=== PATIENT | male | born 1935 | race Caucasian/White ===

== ENCOUNTER 2021-09-21 17:08 | Inpatient (IN) | payer MEDICARE, MEDICAID, SELFPAY ==
[2021-09-21 17:09] VITALS: BP 176/81; PULSE 61; RESP 18; O2SAT 98; BMI 33.9
--- NOTE | 2021-09-21 17:10 | CT_ITS ---
PROCEDURE INFORMATION: Exam: CT Head Without Contrast Exam date and time: 09/21/2021 5:10 PM Age: 85 years old Clinical indication: Altered mental status/memory loss; Additional info: Stroke alert TECHNIQUE: Imaging protocol: Computed tomography of the head without contrast. Radiation optimization: All CT scans at this facility use at least one of these dose optimization techniques: automated exposure control; mA and/or kV adjustment per patient size (includes targeted exams where dose is matched to clinical indication); or iterative reconstruction. Other technique: STROKE PROTOCOL was implemented. COMPARISON: No relevant prior studies available. FINDINGS: Brain: No intracranial bleed, suspicious mass, or mass effect. Ventricles appear unremarkable. There is low attenuation change in the white matter most consistent with chronic age related small vessel ischemic change. No acute territorial infarction is seen. These can be initially occult on head CT. ASPECTS score 10. Cerebral ventricles: See Brain finding. Paranasal sinuses: Visualized sinuses are unremarkable. No fluid levels. Mastoid air cells: Visualized mastoid air cells are well aerated. Bones/joints: Unremarkable. No acute fracture. Soft tissues: Unremarkable. IMPRESSION: 1. No intracranial bleed, suspicious mass, or mass effect. Ventricles appear unremarkable. 2. There is low attenuation change in the white matter most consistent with chronic age related small vessel ischemic change. No acute territorial infarction is seen. These can be initially occult on head CT. 3. ASPECTS score 10.
--- NOTE | 2021-09-21 17:11 | ECG_ITS ---
APPROVED REPORT Exam: Resting ECG HR:60 bpm ECG Measurements Heart Rate 60 AXES HI 182 P 37 QRSd 84 QRS -4 QT 438 T 67 QTc 438 Conclusion Normal sinus rhythm Normal ECG Electronically signed by : Chris Gonzalez MD 09/22/2021 08:31:29
--- NOTE | 2021-09-21 17:11 | PC.NURSE ---
Notified rad of stroke alert Stroke alert called overhead
--- NOTE | 2021-09-21 17:13 | PC.NURSE ---
PT to CT with Chema,RN
--- NOTE | 2021-09-21 17:14 | XR_ITS ---
PROCEDURE INFORMATION: Exam: XR Chest Exam date and time: 09/21/2021 5:14 PM Age: 85 years old Clinical indication: Cough; Additional info: Cough// also here for stroke alert TECHNIQUE: Imaging protocol: XR of the chest. Views: 1 view. COMPARISON: No relevant prior studies available. FINDINGS: Lungs: No lobar consolidation, effusion or edema. Mild bronchial wall thickening. This may represent underlying inflammation or infection, or be chronic. Pleural spaces: Unremarkable. No pleural effusion. No pneumothorax. Heart/Mediastinum: Unremarkable. No cardiomegaly. Bones/joints: Unremarkable. IMPRESSION: 1. No lobar consolidation, effusion or edema. 2. Mild bronchial wall thickening. This may represent underlying inflammation or infection, or be chronic.
--- NOTE | 2021-09-21 17:19 | PC.NURSE ---
PT returned from CT
--- NOTE | 2021-09-21 17:27 | PC.NURSE ---
reviewing CT report
[2021-09-21 17:28] LABS: Basophils # 0.2 K/mm3 (0-0.2); Basophils % 2.7 % (0.1-2.0); Chloride 108 mmol/L (98-107); Eosinophils # 0.4 K/mm3 (0.0-0.4); Eosinophils % 5.9 % (0.1-12.0); Hematocrit 44.2 % (42.0-52.0); Hemoglobin 14.8 g/dL (14.1-18.0); Lymphocytes # 2.4 K/mm3 (0.7-4.5); Lymphocytes % 37.2 % (10-50); Mean Corpuscular HGB Conc 33.4 g/dL (31.8-35.4); Mean Corpuscular Hemoglobin 33.2 pg (27.0-31.2); Mean Corpuscular Volume 99.5 fl (80-94); Mean Platelet Volume 9.1 fl (7.4-10.4); Monocytes # 0.5 K/mm3 (0.1-1.0); Monocytes % 8.5 % (1.7-9.3); Neutrophils # 2.9 K/mm3 (1.8-7.8); Neutrophils % 45.6 % (37.0-80.0); Platelet Count 178 K/mm3 (142-424); Potassium 4.7 mmoL/L (3.5-5.1); Red Blood Count 4.44 M/mm3 (4.60-6.20); Red Cell Distribution Width 14.6 % (11.5-17.5); Sodium 143 mmol/L (136-145); White Blood Count 6.4 K/mm3 (4.8-10.8)
[2021-09-21 17:31] LABS: Alanine Aminotransferase 23 U/L (12-78); Albumin Level 4.2 g/dl (3.5-5.0); Albumin/Globulin Ratio 1.4 (1.1-1.8); Alkaline Phosphatase 96 U/L (38-126); Anion Gap 14.7 mEq/L (5-15); Aspartate Amino Transferase 38 U/L (17-59); Bilirubin,Total 2.2 mg/dl (0.2-1.3); Blood Urea Nitrogen 36 mg/dl (9-20); Carbon Dioxide 25 mmol/L (22.0-30.0); Creatinine Clearance Estimated 29 mL/min (50-200); Estimated Glomerular Filt Rate 20 ml/min (>60); GFR (African American) 24 ML/MIN (>60); Globulin 3.1 g/dL (1.3-3.2); Total Protein,Serum 7.3 g/dl (6.3-8.2)
[2021-09-21 17:32] LABS: Calcium 9.5 mg/dl (8.4-10.2); Glucose 102 mg/dl (74-100); Lipase 418 U/L (23-300)
--- NOTE | 2021-09-21 17:38 | HMH.EDAMS ---
ED Disposition Clinical Impression: TIA (transient ischemic attack) Altered mental status Qualifiers: Altered mental status type: disorientation Qualified Code(s): R41.0 - Disorientation, unspecified Chronic kidney disease Qualifiers: Chronic kidney disease stage: unspecified stage Qualified Code(s): N18.9 - Chronic kidney disease, unspecified Disposition: Admitted As Inpatient Condition on Discharge: Fair Instructions: DI for Altered Mental Status Referrals: Daniel Kuo [Primary Care Provider] - - Critical Care Critical Care Time: No Attestation: On 09/21/21, the high probability of a clinically significant, sudden or life threatening deterioration of the following system(s) required my full and direct attention, intervention and personal management. The time I documented below is in addition to time spent performing reported procedures but includes the following listed in this critical care notation. Medical Decision Making - Medical Records Medical records reviewed: Yes: I reviewed the patient's medical records. - James Inquiry Pt receiving controlled substance: No Vital Signs: 09/21/21 17:09 09/21/21 18:00 09/21/21 18:34 Pulse Rate 60 60 Pulse Rate [Left Radial] 61 Respiratory Rate 18 16 15 Blood Pressure 170/80 H 151/64 H Blood Pressure [Right Arm] 176/81 H Blood Pressure Mean 75 Blood Pressure Mean [Right Arm] 112 Blood Pressure Source Automatic Cuff Blood Pressure Source [Right Arm] Automatic Cuff Blood Pressure Position Sitting Blood Pressure Position [Right Arm] Sitting 02 Sat by Pulse Oximetry 98 98 98 Oxygen Delivery Method Room Air Room Air - Lab Data Lab Results 09/21/21 17:15: WBC 6.4, RBC 4.44 L, Hgb 14.8, Hct 44.2, MCV 99.5 H, MCH 33.2 H, MCHC 33.4, RDW 14.6, Plt Count 178, MPV 9.1, Neut % (Auto) 45.6, Lymph % (Auto) 37.2, [place] % (Auto) 8.5, Eos % (Auto) 5.9, Baso % (Auto) 2.7 H, Neut # (Auto) 2.9, Lymph # (Auto) 2.4, [place] # (Auto) 0.5, Eos # (Auto) 0.4, Baso # (Auto) 0.2 09/21/21 17:15: Sodium 143, Potassium 4.7, Chloride 108 H, Carbon Dioxide 25, Anion Gap 14.7, BUN 36 H, Creatinine 3.00 H, Estimated Creat Clear 29, Estimated GFR 20 L, Est GFR ( Amer) 24 L, Glucose 102 H, Calcium 9.5, Total Bilirubin 2.2 H, AST 38, ALT 23, Alkaline Phosphatase 96, Troponin I < 0.01, Total Protein 7.3, Albumin 4.2, Globulin 3.1, Albumin/Globulin Ratio 1.4, TSH 2.94 09/21/21 17:15: NT-Pro-B Natriuret Pep 163, Lipase 418 H 09/21/21 17:15: Plasma/Serum Alcohol < 10 09/21/21 17:50: Urine Color Yellow, Urine Appearance Clear, Urine pH 6.0, Ur Specific [place] 1.020, Urine Protein Negative, Urine Glucose (UA) Negative, Urine Ketones Negative, Urine Blood Negative, Urine Nitrate Negative, Urine Bilirubin Negative, Urine Urobilinogen 1.0, Ur Leukocyte Esterase Negative, Urine RBC None, Urine WBC Occasional, Ur Squamous Epith Cells Occasional, Urine Bacteria None 09/21/21 17:50: Urine Opiates Screen Negative, Urine Methadone Screen Negative, Ur Barbituates Screen Negative, Ur Phencyclidine Scrn Negative, Ur Amphetamines Screen Negative, U Benzodiazepines Scrn Negative, Urine Cocaine Screen Negative, U Marijuana (THC) Screen Negative Result diagrams: 09/21/21 17:15 09/21/21 17:15 Orders (Tests/Meds): ORDERS Category Date Time Status Rapid PCR Covid and Flu A/B Stat Lab 09/21/21 17:14 Ordered Troponin I Q3H Lab 09/21/21 20:15 Ordered Troponin I Q3H Lab 09/21/21 23:15 Ordered - Radiology Data #1 Image(s): Chest Image Reviewed: Yes I reviewed the patient's radiology results, Yes I reviewed the patient's radiology image, Yes I have reviewed radiologist's interpretation IMPRESSION: 1. No lobar consolidation, effusion or edema. 2. Mild bronchial wall thickening. This may represent underlying inflammation or infection, or be chronic. - CT Data CT Scan: Head Time Received: 19:[address] Reviewed: Yes: I have reviewed the patient's CT results, I have viewed t
[2021-09-21 17:41] LABS: NT Pro Brain Natriuretic Pep. 163 pg/mL (0-450)
[2021-09-21 17:53] LABS: Ethyl Alcohol < 10 mg/dl (0-10); Troponin I < 0.01 ng/ml (0.00-0.034)
[2021-09-21 18:00] VITALS: BP 170/80; PULSE 60; RESP 16; O2SAT 98
[2021-09-21 18:02] LABS: Thyroid Stimulating Hormone 2.94 uIU/mL (0.465-4.68)
[2021-09-21 18:04] LABS: Microscopic, Urine URINE MICROSCOPIC (MICROSCOPIC)
[2021-09-21 18:17] LABS: Appearance,Urine CLEAR (Clear); Bilirubin,Urine Negative (Negative); Blood, Urine Negative (Negative); Color,Urine YELLOW (Yellow); Glucose,Urine (UA) Negative (Negative); Ketones,Urine Negative (Negative); Leukocyte Esterase,Urine Negative (Negative); Nitrate,Urine Negative (Negative); Protein,Urine Negative (Negative)
[2021-09-21 18:31] LABS: Amphetamine/Metha Screen,Urine Negative ng/ml (<1000)
[2021-09-21 18:32] LABS: Barbiturates Screen,Urine Negative ng/ml (<200); Benzodiazepines Screen,Urine Negative ng/ml (<200)
[2021-09-21 18:33] LABS: Cannabinoid Screen,Urine Negative ng/ml (<50); Cocaine Screen,Urine Negative ng/ml (<300)
[2021-09-21 18:34] VITALS: BP 151/64; PULSE 59; PULSE 60; RESP 15; RESP 16; O2SAT 98
[2021-09-21 18:34] LABS: Methadone Screen,Urine Negative ng/ml (<300); Squamous Epithelial Cell,Urine Occasional #/hpf (0-5); WBC,Urine Occasional #/hpf (0-3)
[2021-09-21 18:35] LABS: Opiate Screen,Urine Negative ng/ml (<300); Phencyclidine Screen,Urine Negative ng/ml (<25)
--- NOTE | 2021-09-21 18:44 | PC.NURSE ---
Called Mary and requested records
--- NOTE | 2021-09-21 18:55 | PC.NURSE ---
Dr. Hodges has been paged.
--- NOTE | 2021-09-21 19:08 | PC.NURSE ---
Decision to admit by ER doc. Hodges to [facility].
[2021-09-21 19:20] LABS: Coronavirus 19, PCR Not Detected (NotDetected); Influenza A, PCR Not Detected (NotDetected); Influenza B, PCR Not Detected (NotDetected)
[2021-09-21 20:00] VITALS: PULSE 80; O2SAT 97
[2021-09-21 20:16] VITALS: BP 161/81; PULSE 68; RESP 16; TEMP 36.8; O2SAT 98
[2021-09-21 20:18] VITALS: BP 156/68; PULSE 70; RESP 20; TEMP 36.8; O2SAT 97; BMI 33.2
--- NOTE | 2021-09-21 20:20 | PC.NURSE ---
patient arrived via stretcher @ 20:18.
[2021-09-21 20:27] LABS: Troponin I < 0.01 ng/ml (0.00-0.034)
[2021-09-21 23:49] LABS: Troponin I < 0.01 ng/ml (0.00-0.034)
[2021-09-22] VITALS (9 sets, daily range): BP systolic 102–196; BP diastolic 62–72; PULSE 67–82; RESP 16–24; TEMP 36.5–37.1; O2SAT 96–99; BMI 33.2
--- NOTE | 2021-09-22 06:16 | PC.NURSE ---
pt is alert and oriented to self. unable to follow commands appropriately. he has been very restless throughout this shift. he has been in and out of the bed to the recliner multiple times. this nurse and another nurse ambulated pt to the bathroom. tolerating room air. resting in bed at this time. bed alarm on and functioning. call light within reach.
[2021-09-22 07:42] LABS: Alanine Aminotransferase 27 U/L (12-78); Albumin/Globulin Ratio 1.3 (1.1-1.8); Alkaline Phosphatase 87 U/L (38-126); Anion Gap 13.3 mEq/L (5-15); Aspartate Amino Transferase 46 U/L (17-59); Bilirubin,Total 2.3 mg/dl (0.2-1.3); Blood Urea Nitrogen 43 mg/dl (9-20); Calcium 10.2 mg/dl (8.4-10.2); Carbon Dioxide 21 mmol/L (22.0-30.0); Chloride 112 mmol/L (98-107); Creatinine Clearance Estimated 22 mL/min (50-200); Estimated Glomerular Filt Rate 15 ml/min (>60); GFR (African American) 18 ML/MIN (>60); Globulin 3.1 g/dL (1.3-3.2); Glucose 107 mg/dl (74-100); Potassium 4.3 mmoL/L (3.5-5.1); Sodium 142 mmol/L (136-145); Total Protein,Serum 7.1 g/dl (6.3-8.2)
[2021-09-22 08:06] LABS: Basophils # 0.1 K/mm3 (0-0.2); Basophils % 0.9 % (0.1-2.0); Eosinophils # 0.3 K/mm3 (0.0-0.4); Eosinophils % 4.4 % (0.1-12.0); Hematocrit 42.5 % (42.0-52.0); Hemoglobin 14.4 g/dL (14.1-18.0); Lymphocytes # 1.9 K/mm3 (0.7-4.5); Mean Corpuscular Hemoglobin 33.1 pg (27.0-31.2); Mean Corpuscular Volume 97.4 fl (80-94); Mean Platelet Volume 9.2 fl (7.4-10.4); Monocytes # 0.6 K/mm3 (0.1-1.0); Monocytes % 9.1 % (1.7-9.3); Neutrophils # 3.6 K/mm3 (1.8-7.8); Neutrophils % 55.5 % (37.0-80.0); Platelet Count 168 K/mm3 (142-424); Red Blood Count 4.36 M/mm3 (4.60-6.20); Red Cell Distribution Width 14.8 % (11.5-17.5); White Blood Count 6.5 K/mm3 (4.8-10.8)
--- NOTE | 2021-09-22 08:38 | HMH.PHAVTE ---
[facility] Pharmacy VTE Monitoring - Patient Demographics Allergies/Adverse Reactions: Patient Allergies No Known Allergies Allergy (Verified 09/21/21 17:10) Height: 1.83 m Weight: 111.2 kg Patient Problems: Current Active Problems Altered mental status (Acute) TIA (transient ischemic attack) (Acute) Chronic kidney disease (Acute) - VTE Risk Labs: VTE Related Lab Results Hgb 14.4 g/dL (14.1-18.0) 09/22/21 06:44 Hct 42.5 % (42.0-52.0) 09/22/21 06:44 Plt Count 168 K/mm3 (142-424) 09/22/21 06:44 BUN 43 mg/dl (9-20) H 09/22/21 06:44 Creatinine 3.90 mg/dl (0.66-1.25) H D 09/22/21 06:44 Estimated Creat Clear 22 mL/min (50-200) 09/22/21 06:44 Was VTE Risk Assessment Performed: Yes VTE Risk Level: Moderate Risk Clinical Trial Participant: No - Prophylaxis VTE Prophylaxis Ordered?: Yes Types of VTE Prophylaxis: TEDS Knee High, Pharmacological Location of Applied Device: Bilateral Lower Extremeties Pharmacologic Type: Enoxaparin
--- NOTE | 2021-09-22 09:20 | HMH.PHAINT ---
MEDICATION RECONCILIATION COMPLETE USING EXTERNAL PHARMACY FILL HISTORY.
--- NOTE | 2021-09-22 11:26 | HMH.HP ---
*Admission Date: 09/21/21 *Chief complaint: confusion *History of present illness: Mr. Olivas is an 85-year-old white male with a history of hypertension, hyperlipidemia, BPH, and arthritis who who presented to the emergency room initially as a stroke alert. He was brought in by his son around 5 PM stating that at noon he noticed he was more confused and was having difficulty ambulating and following commands and was slurring some of his words. No family is present at the time of my exam this morning but according to the ER record, he has been having slowly progressive symptoms over several weeks. In fact he was hospitalized at [facility] in July with similar symptoms which resolved within 24 hours and he was diagnosed with TIA. He had another episode about 2 years ago and had a more complete work-up including MRI and MRA of the brain which showed nothing acute. This information is obtained from records required from [facility]. Evaluation in our emergency room yesterday was remarkable for an elevated creatinine of 3.0 with no known history of chronic kidney disease although on record review from [facility] his creatinine in July was 1.9. He apparently was on diuretics at that time and these were discontinued. Noncontrast CT scan of the head in the ER showed age-related small vessel ischemic changes. During the course of his evaluation in the emergency room, his neurologic symptoms did seem to improve. The ER physician documented that his speech seemed to be more clear and he was moving all extremities. He was subsequently admitted for further neurologic observation and also evaluation of his acute renal insufficiency. Nursing staff notes that he was restless throughout the night and was confused. He did not sleep well. His creatinine is increased to 3.9 this morning. His daughter has arrived to the hospital and provides additional information. She however lives in [place] and sees her father only every few weeks. She does speak with him frequently on the phone and states that she had a long conversation 4 days ago and his mental status was normal at that time. She also reports that he was mowing his grass and driving his car last week. She is aware of the previous episodes he has had and states that this one is similar but has lasted longer than the other episodes. He lives alone and manages his own medication although his son lives nearby and checks on him frequently. 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 No history of neurologic disease or dementia) Review of Systems - Review of Systems Review of systems:: unable to obtain - *Neurologic Reports confusion, Reports lack of coordination Meds Home Medications Medication Instructions Recorded Confirmed Type Aspirin [Aspirin EC 325mg Tab] 325 mg PO DAILY 09/21/21 09/21/21 History Atorvastatin Calcium [Lipitor 40mg 40 mg PO DAILY 09/21/21 09/21/21 History Tab] Cetirizine HCl [All Day Allergy 10 mg PO DAILY 09/21/21 09/21/21 History Relief] Finasteride [Proscar 5mg Tablet] 5 mg PO DAILY 09/21/21 09/21/21 History Losartan Potassium 50 mg PO DAILY 09/21/21 09/21/21 History Triamterene/Hydrochlorothiazid 1 each PO DAILY 09/21/21 09/21/21 History [Triamterene-Hctz 75-50 mg Ta
[2021-09-23] VITALS (7 sets, daily range): BP systolic 121–150; BP diastolic 41–68; PULSE 60–90; RESP 16–18; TEMP 36.7–38.7; O2SAT 94–98; BMI 33.2
--- NOTE | 2021-09-23 04:23 | PC.NURSE ---
Pt is alert and oriented to self can state name and . Pt has been very restless throughout this shift. Pt has been in and out of the bed multiple times. Can ambulate to bathroom x2 assist. Bed alarm on and functioning.
[2021-09-23 07:03] LABS: Basophils % 0.3 % (0.1-2.0); Eosinophils % 0.1 % (0.1-12.0); Hematocrit 39.3 % (42.0-52.0); Hemoglobin 14.2 g/dL (14.1-18.0); Lymphocytes # 0.8 K/mm3 (0.7-4.5); Lymphocytes % 5.8 % (10-50); Mean Corpuscular HGB Conc 36.1 g/dL (31.8-35.4); Mean Corpuscular Hemoglobin 34.3 pg (27.0-31.2); Mean Corpuscular Volume 94.8 fl (80-94); Mean Platelet Volume 9.6 fl (7.4-10.4); Monocytes # 0.7 K/mm3 (0.1-1.0); Monocytes % 5.2 % (1.7-9.3); Neutrophils # 12.5 K/mm3 (1.8-7.8); Neutrophils % 88.5 % (37.0-80.0); Platelet Count 147 K/mm3 (142-424); Red Blood Count 4.14 M/mm3 (4.60-6.20); Red Cell Distribution Width 14.4 % (11.5-17.5); White Blood Count 14.1 K/mm3 (4.8-10.8)
[2021-09-23 07:04] LABS: MANUAL DIFFERENTIAL MANUAL DIFFERENTIAL (MANUAL DIFF)
[2021-09-23 07:34] LABS: Alanine Aminotransferase 27 U/L (12-78); Albumin Level 3.6 g/dl (3.5-5.0); Albumin/Globulin Ratio 1.2 (1.1-1.8); Alkaline Phosphatase 83 U/L (38-126); Anion Gap 15.5 mEq/L (5-15); Aspartate Amino Transferase 55 U/L (17-59); Blood Urea Nitrogen 50 mg/dl (9-20); Calcium 9.7 mg/dl (8.4-10.2); Carbon Dioxide 20 mmol/L (22.0-30.0); Chloride 113 mmol/L (98-107); Creatinine Clearance Estimated 19 mL/min (50-200); Estimated Glomerular Filt Rate 13 ml/min (>60); GFR (African American) 15 ML/MIN (>60); Globulin 3.1 g/dL (1.3-3.2); Glucose 118 mg/dl (74-100); Lipase 385 U/L (23-300); Potassium 4.5 mmoL/L (3.5-5.1); Sodium 144 mmol/L (136-145); Total Protein,Serum 6.7 g/dl (6.3-8.2)
--- NOTE | 2021-09-23 08:05 | XR_ITS ---
PROCEDURE: XR CHEST PORTABLE CLINICAL HISTORY: fever, AMS COMPARISON: CR XR CHEST PORTABLE from 09/21/2021 FINDINGS: The cardiomediastinal silhouette and pulmonary vascularity are within normal limits. The lungs are clear without infiltrates, suspicious nodules, or pleural effusions. No acute bony abnormalities. IMPRESSION: No acute findings. Dictated by: Oneil King MD 09/23/2021 10:11 Oneil King MD in OV 09/23/2021 10:11
--- NOTE | 2021-09-23 08:31 | US_ITS ---
PROCEDURE: US KIDNEY CLINICAL INDICATION: acute renal failure COMPARISON: No exams were available for comparison FINDINGS: The right kidney is [id number]. No hydronephrosis, cortical thinning, or renal mass or perinephric fluid collection is evident. The left kidney is [id number]. No hydronephrosis, cortical thinning, or renal mass or perinephric fluid collection is evident. IMPRESSION: Unremarkable bilateral renal ultrasound Dictated by: Oneil King MD 09/23/2021 13:56 Oneil King MD in [place] 09/23/2021 13:56
--- NOTE | 2021-09-23 08:36 | HMH.PHACONS ---
- Pharmacy Consult Date: 09/23/21 Time: 08:36 Referring provider: DR. BARKLEY Reason for Consult:: VANCOMYCIN DOSING Allergies and ADEs:: Allergies Allergy/AdvReac Type Severity Reaction Status Date / Time No Known Allergies Allergy Verified 09/21/21 17:10 Home Medications:: Home Medications Medication Instructions Recorded Confirmed Type Aspirin [Aspirin EC 325mg Tab] 325 mg PO DAILY 09/21/21 09/21/21 History Atorvastatin Calcium [Lipitor 40mg 40 mg PO DAILY 09/21/21 09/21/21 History Tab] Cetirizine HCl [All Day Allergy 10 mg PO DAILY 09/21/21 09/21/21 History Relief] Finasteride [Proscar 5mg Tablet] 5 mg PO DAILY 09/21/21 09/21/21 History Losartan Potassium 50 mg PO DAILY 09/21/21 09/21/21 History Triamterene/Hydrochlorothiazid 1 each PO DAILY 09/21/21 09/21/21 History [Triamterene-Hctz 75-50 mg Tab] carvediloL [Carvedilol 6.25mg Tab] 6.25 mg PO DAILY 09/21/21 09/21/21 History Height: 1.83 m Weight: 111.2 kg Laboratory Results:: Laboratory Results - last 24 hr 09/23/21 05:44: WBC 14.1 H D, RBC 4.14 L, Hgb 14.2, Hct 39.3 L, MCV 94.8 H, MCH 34.3 H, MCHC 36.1 H, RDW 14.4, Plt Count 147, MPV 9.6, Neut % (Auto) 88.5 H, Lymph % (Auto) 5.8 L, [place] % (Auto) 5.2, Eos % (Auto) 0.1, Baso % (Auto) 0.3, Neut # (Auto) 12.5 H, Lymph # (Auto) 0.8, [place] # (Auto) 0.7, Eos # (Auto) 0.0, Baso # (Auto) 0.0 09/23/21 05:44: Sodium 144, Potassium 4.5, Chloride 113 H, Carbon Dioxide 20 L, Anion Gap 15.5 H, BUN 50 H, Creatinine 4.50 H, Estimated Creat Clear 19, Estimated GFR 13 L*, Est GFR ( Amer) 15 L*, Glucose 118 H, Calcium 9.7, Magnesium 2.0, Total Bilirubin 3.0 H, AST 55, ALT 27, Alkaline Phosphatase 83, Total Protein 6.7, Albumin 3.6, Globulin 3.1, Albumin/Globulin Ratio 1.2, Lipase 385 H Medical History: Reports:: Hyperlipidemia, Hypertension Denies:: Atherosclerotic Heart Disease, Cerebrovascular Accident, Diabetes Mellitus Type 1, Diabetes Mellitus Type 2 Assessment and Plan (1) Altered mental status Status: Acute Qualifiers: Altered mental status type: disorientation Qualified Code(s): R41.0 - Disorientation, unspecified Category: Medical Code(s): R41.82 - Altered mental status, unspecified (2) Multifocal myoclonus Status: Acute Category: Medical Code(s): G25.3 - Myoclonus (3) Acute kidney injury superimposed on chronic kidney disease Status: Acute Category: Medical Code(s): N17.9 - Acute kidney failure, unspecified; N18.9 - Chronic kidney disease, unspecified (4) Hypertension Status: Acute Category: Medical Code(s): I10 - Essential (primary) hypertension (5) Hyperlipidemia Status: Acute Category: Medical Code(s): E78.5 - Hyperlipidemia, unspecified (6) Elevated lipase Status: Acute Category: Medical Code(s): R74.8 - Abnormal levels of other serum enzymes (7) Osteoarthritis Status: Acute Category: Medical Code(s): M19.90 - Unspecified osteoarthritis, unspecified site - Assessment and plan all Dx Assessment and Plan for all problems:: Pharmacokinetic dosing service Objective: Patient: Floor: Age: 85 yo Serum creatinine: 4.50 mg/dL Height: 72.0 Inches Weight (kg): 111.2 Assessment: IBW (kg): 77.60 Dosing wt(kg): 111.2 Estimated Creatinine clearance (ml/min): 13.4 CRCL method: Cockcroft and Gault using ibw(default). Drug selected: Vancomycin Loading dose (mg): Vd (liters): 83.4 (factor used: 0.75 L/kg) Leeroy (hr-1): 0.016 Half life (hrs): 43.32 CLvanco=?? 1.334 L/hr Recommended dose: 1500 mg Interval: 48 hrs Infusion time (hrs): 2.0 Predicted peak (mcg/mL): 33.0 Predicted trough (mcg/mL): 15.81 Total body weight is being used for vancomycin dosing. Recommendations: Give Vancomycin 1500 mg q 48 hrs with an expected Cpeak of
[2021-09-23 08:56] LABS: Lymphocytes % 9 % (10-50); Monocytes % 3 % (2-9); Neutrophils % 88 % (42-76); Platelet Estimate Normal; Total Cells Counted 100
--- NOTE | 2021-09-23 11:31 | HMH.OTEV ---
OT Inpatient Evaluation Rehab OT IP Evaluation Start: 09/23/21 09:01 Freq: ONCE Status: Complete Protocol: Document 09/23/21 11:12 DAVID (Rec: 09/23/21 11:30 DAVID [id number]) Rehab OT IP Assessment Subjective History *Admission Date: 09/21/21 *Chief complaint: confusion Mr. Olivas is an 85-year-old white male with a history of hypertension, hyperlipidemia, BPH, and arthritis who who presented to the emergency room initially as a stroke alert. He was brought in by his son around 5 PM stating that at noon he noticed he was more confused and was having difficulty ambulating and following commands and was slurring some of his words. No family is present at the time of my exam this morning but according to the ER record , he has been having slowly progressive symptoms over several weeks. In fact he was hospitalized at [facility] in July with similar symptoms which resolved within 24 hours and he was diagnosed with TIA. He had another episode about 2 years ago and had a more complete work-up including MRI and MRA of the brain which showed nothing acute. This information is obtained from records required from [facility]. Evaluation in our emergency room yesterday was remarkable for an elevated creatinine of 3.0 with no known history of chronic kidney disease although on record review from [facility] his creatinine in July was 1.9. He apparently was on diuretics at that time and these were discontinued.
--- NOTE | 2021-09-23 11:36 | HMH.PTEV ---
Physical Therapy Evaluation Rehab PT IP Evaluation Start: 09/23/21 09:00 Freq: ONCE Status: Active Protocol: Document 09/23/21 11:18 [email or web address] (Rec: 09/23/21 11:36 [id number]) Subjective/History History History This is the initial evaluation for [facility]. Pt is an 85 y/o male admitted to [facility] for stroke alert. Admission notes reported son admitted pt with complaints of weakness, confusion, trouble ambulating, following commands and slurred speech. Pt's daughter was in room upom arrival and aided in history of current condition. - note done by Sonia Malcolm, SPT Subjective Subjective Pt reported to live at home in a house with son. Pt stated he is able to get around with cane only which he doesn't always use. Pt reported hx of trips that resulted in some falls. Pt reports that he was independent in all ADL's at home and continent. 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 Pt's daughter states he is significantly better today then yesturday. Rehab PT IP Eval Objective Appearance Patient Behavior Appropriate,Cooperative Patient Orientation Place,Name,Birthday Difficulty following instructions mild Speech Pattern Appropriate,Coherent,Monotone, Mumbled,Poor Articulation Ambulation Patient Able to Ambulate Yes Ambulation Observation IP General Gait Pattern Observation No Deviations/Normal Ambulation Distance (feet) 30 Ambulation Assistive Device Rolling Walker Ambulation Ability Supervision/Stand by Balance Ability to Arise Able, w/o using arms Sitting Balance Steady, safe Standing Balance Narrow stance w/o support Dynamic Sitting Balance Ability Normal Dynamic Standing Balance Ability Good Transfers Bed Transfer Ability Independent Chair Transfer Ability Supervision/Stand by Sit to Stand Bed Transfer Ability Supervision/Stand by Sit to Stand Chair Transfer Ability Supervision/Stand by
--- NOTE | 2021-09-23 12:15 | MR_ITS ---
PROCEDURE: MR HEAD/BRAIN WO CON CLINICAL INDICATION: CONFUSION COMPARISON: CT CT HEAD/BRAIN WO CON from 09/21/2021 TECHNIQUE: Routine multiplanar multi echo sequences are performed without gadolinium enhancement. FINDINGS: No acute infarction. No areas of restricted diffusion. No midline shift, mass effect, intracranial hemorrhage, or hydrocephalus. The cerebellopontine angles, cerebellum, and brainstem have an unremarkable appearance. Mild periventricular and scattered subcortical T2 white matter hyperintensities are present consistent with microangiopathic changes. The pituitary, optic chiasm, corpus callosum, and craniocervical junction have an unremarkable appearance. No mastoid effusion or sinus air-fluid level. IMPRESSION: No acute intracranial findings. Dictated by: Oneil King MD 09/23/2021 13:55 Oneil King MD in [place] 09/23/2021 13:55
--- NOTE | 2021-09-23 12:33 | HMH.ACPN2 ---
<Cami Holguin - Last Filed: 09/23/21 12:33> Internal Medicine - PN: Subj *Date: 09/23/21 *Time: 12:33 Interval history: Pt is sitting up in bed eating lunch. He has no complaint at this time. He has been up to the bathroom with assistance. His daughter is at the bedside and reports mental status and speech have returned to normal, although she feels he is weaker than baseline during ambulation and slightly more tremulous. Exam Vital signs and Labs for Last 24 Hours: Temp Pulse Resp BP Pulse Ox 98.0 F 69 18 121/51 L 97 09/23/21 11:02 09/23/21 11:02 09/23/21 11:02 09/23/21 11:02 09/23/21 11:02 Laboratory Results - last 24 hr 09/23/21 05:44: WBC 14.1 H D, RBC 4.14 L, Hgb 14.2, Hct 39.3 L, MCV 94.8 H, MCH 34.3 H, MCHC 36.1 H, RDW 14.4, Plt Count 147, MPV 9.6, Neut % (Auto) 88.5 H, Lymph % (Auto) 5.8 L, Johnson % (Auto) 5.2, Eos % (Auto) 0.1, Baso % (Auto) 0.3, Neut # (Auto) 12.5 H, Lymph # (Auto) 0.8, Johnson # (Auto) 0.7, Eos # (Auto) 0.0, Baso # (Auto) 0.0, Total Counted 100, Neutrophils % (Manual) 88 H, Lymphocytes % (Manual) 9 L, Monocytes % (Manual) 3, Platelet Estimate Normal 09/23/21 05:44: Sodium 144, Potassium 4.5, Chloride 113 H, Carbon Dioxide 20 L, Anion Gap 15.5 H, BUN 50 H, Creatinine 4.50 H, Estimated Creat Clear 19, Estimated GFR 13 L*, Est GFR ( Amer) 15 L*, Glucose 118 H, Calcium 9.7, Magnesium 2.0, Total Bilirubin 3.0 H, AST 55, ALT 27, Alkaline Phosphatase 83, Total Protein 6.7, Albumin 3.6, Globulin 3.1, Albumin/Globulin Ratio 1.2, Lipase 385 H I & O for Last 24 hours: Intake & Output 11/13/21 11/14/21 11/15/21 11/16/21 11:59 11:59 11:59 11:59 Intake Total 120 / 120 660 / 660 Output Total 225 / 225 Balance -105 / -105 660 / 660 Weight 245 lb 2.464 oz 245 lb 2.464 oz - Constitutional no acute distress - *Routine HEENT Exam Head: Present: normocephalic ENT: Present: mucous membranes moist - *Routine Respiratory Exam Absent: respiratory distress Comments: good air movement with rhonchi throughout - *Routine Cardiovascular Exam Present: RRR - *Routine Abdominal Exam Present: soft, normoactive bowel sounds, obese. Absent: tenderness, distended - *Routine Extremities Exam Present: full ROM, pulses intact. Absent: edema, tenderness, extremity cold to touch - *Routine Neurological Exam Present: alert, oriented X3, moving all extremities Assessment and Plan (1) Altered mental status Status: Acute Qualifiers: Altered mental status type: disorientation Qualified Code(s): R41.0 - Disorientation, unspecified Category: Medical Code(s): R41.82 - Altered mental status, unspecified (2) Multifocal myoclonus Status: Acute Category: Medical Code(s): G25.3 - Myoclonus (3) Acute kidney injury superimposed on chronic kidney disease Status: Acute Category: Medical Code(s): N17.9 - Acute kidney failure, unspecified; N18.9 - Chronic kidney disease, unspecified (4) Hypertension Status: Acute Category: Medical Code(s): I10 - Essential (primary) hypertension (5) Hyperlipidemia Status: Acute Category: Medical Code(s): E78.5 - Hyperlipidemia, unspecified (6) Elevated lipase Status: Acute Category: Medical Code(s): R74.8 - Abnormal levels of other serum enzymes (7) Osteoarthritis Status: Acute Category: Medical Code(s): M19.90 - Unspecified osteoarthritis, unspecified site - Assessment and plan all Dx Assessment and Plan for all problems:: Per Dr. Hodges. <Alejandro Hodges - Last Filed: 09/23/21 17:26> Internal Medicine - PN: Subj *Date: 09/23/21 *Time: 17:23 Exam Vital signs and Labs for Last 24 Hours: Temp Pulse Resp BP Pulse Ox 99.0 F 72 16 122/59 L 97 09/23/21 15:10 09/23/21 15:10 09/23/21 15:10 09/23/21 15:10 09/23/21 15:10 Laboratory Results - last 24 hr 09/23/21 05:44: WBC 14.1 H D, RBC 4.14 L, Hgb 14.2, Hct 39.3 L, MCV 94.8 H, MCH 34.3 H, MCHC 36.1 H, RDW 14.4, P
--- NOTE | 2021-09-23 13:14 | SW/DCPLANNER ---
Addendum entered by Jenny Fam 09/25/21 11:21: Sherrill quintanilla/ [facility] has called and stated that services will begin for this patient tomorrow. Addendum entered by Jenny Fam 09/25/21 09:09: The plan is for this patient to discharge home today. Patient is agreeable to home health services at home and has all appropriate DME at home. Patient information/order will be faxed to [facility]. Patient/family has no further needs at home. I will follow up with [facility] once patient information is reviewed. Original Note: I spoke with this patients daughter regarding discharge plans. Daughter stated that patient lives at home with son and daughter in law. Daughter stated that last week patient was able to drive and ambulate independently. Daughter stated that patient has shown improvement since admission. The plan for this patient per family is to return home w/ family and home health services if able. Daughter asked that she have time to speak with her brother then they will make a decision. Discharge date is unknown at this time and I will continue to follow up with this patient.
--- NOTE | 2021-09-23 18:03 | PC.NURSE ---
Patient is NSR on tele and on room air. Patient is alert and oriented times 4. Patient up to chair with PT. Patient had MRI, US, and PCXR done. Patient is up with assist times one/standby assist. Call light in reach and bed in lowest position. Will continue to monitor.
[2021-09-24] VITALS (8 sets, daily range): BP systolic 130–173; BP diastolic 54–79; PULSE 60–80; RESP 18–22; TEMP 36.6–37; O2SAT 96–99; BMI 33.0
[2021-09-24 06:25] LABS: Basophils % 0.7 % (0.1-2.0); Eosinophils # 0.1 K/mm3 (0.0-0.4); Eosinophils % 1.8 % (0.1-12.0); Hematocrit 38.5 % (42.0-52.0); Hemoglobin 13.1 g/dL (14.1-18.0); Lymphocytes # 1.1 K/mm3 (0.7-4.5); Lymphocytes % 24.6 % (10-50); Mean Corpuscular HGB Conc 34.1 g/dL (31.8-35.4); Mean Corpuscular Hemoglobin 33.1 pg (27.0-31.2); Mean Platelet Volume 9.2 fl (7.4-10.4); Monocytes # 0.4 K/mm3 (0.1-1.0); Monocytes % 8.3 % (1.7-9.3); Neutrophils % 64.6 % (37.0-80.0); Platelet Count 111 K/mm3 (142-424); Red Blood Count 3.97 M/mm3 (4.60-6.20); Red Cell Distribution Width 14.3 % (11.5-17.5); White Blood Count 4.6 K/mm3 (4.8-10.8)
[2021-09-24 07:05] LABS: Alanine Aminotransferase 28 U/L (12-78); Albumin Level 3.3 g/dl (3.5-5.0); Albumin/Globulin Ratio 1.1 (1.1-1.8); Alkaline Phosphatase 66 U/L (38-126); Anion Gap 10.9 mEq/L (5-15); Aspartate Amino Transferase 64 U/L (17-59); Bilirubin,Total 1.8 mg/dl (0.2-1.3); Blood Urea Nitrogen 50 mg/dl (9-20); Calcium 8.3 mg/dl (8.4-10.2); Carbon Dioxide 20 mmol/L (22.0-30.0); Chloride 113 mmol/L (98-107); Creatinine Clearance Estimated 23 mL/min (50-200); Estimated Glomerular Filt Rate 16 ml/min (>60); GFR (African American) 19 ML/MIN (>60); Glucose 100 mg/dl (74-100); Potassium 3.9 mmoL/L (3.5-5.1); Sodium 140 mmol/L (136-145); Total Protein,Serum 6.3 g/dl (6.3-8.2)
--- NOTE | 2021-09-24 08:58 | HMH.ACPN2 ---
<Cami Holguin - Last Filed: 09/24/21 09:06> Internal Medicine - PN: Subj *Date: 09/24/21 *Time: 09:06 Interval history: He is sitting up in the chair eating breakfast. He has no complaint. He rested well overnight and feels like his legs are getting stronger each time he ambulates to the bathroom. Exam Vital signs and Labs for Last 24 Hours: Temp Pulse Resp BP Pulse Ox 97.9 F 74 22 147/65 H 98 09/24/21 08:00 09/24/21 08:00 09/24/21 08:00 09/24/21 08:00 09/24/21 08:00 Laboratory Results - last 24 hr 09/24/21 05:44: WBC 4.6 L D, RBC 3.97 L, Hgb 13.1 L, Hct 38.5 L, MCV 97.0 H, MCH 33.1 H, MCHC 34.1, RDW 14.3, Plt Count 111 L, MPV 9.2, Neut % (Auto) 64.6, Lymph % (Auto) 24.6, Collin % (Auto) 8.3, Eos % (Auto) 1.8, Baso % (Auto) 0.7, Neut # (Auto) 3.0, Lymph # (Auto) 1.1, Collin # (Auto) 0.4, Eos # (Auto) 0.1, Baso # (Auto) 0.0 09/24/21 05:44: Sodium 140, Potassium 3.9, Chloride 113 H, Carbon Dioxide 20 L, Anion Gap 10.9, BUN 50 H, Creatinine 3.70 H, Estimated Creat Clear 23, Estimated GFR 16 L*, Est GFR ( Amer) 19 L* D, Glucose 100, Calcium 8.3 L, Total Bilirubin 1.8 H, AST 64 H, ALT 28, Alkaline Phosphatase 66, Total Protein 6.3, Albumin 3.3 L, Globulin 3.0, Albumin/Globulin Ratio 1.1 I & O for Last 24 hours: Intake & Output 09/21/21 09/22/21 09/23/21 09/24/21 11:59 11:59 11:59 11:59 Intake Total 120 / 120 660 / 660 2451 / 2451 Output Total 225 / 225 300 / 300 Balance -105 / -105 660 / 660 2151 / 2151 Weight 245 lb 2.464 oz 245 lb 2.464 oz 244 lb 0.827 oz Radiology Reports for the Last 24 Hours: 09/23/21 CXR: IMPRESSION: No acute findings. 09/23/21 Renal Ultrasound: IMPRESSION: Unremarkable bilateral renal ultrasound. 09/23/21 Brain MRI: IMPRESSION: No acute intracranial findings. - Constitutional no acute distress - *Routine HEENT Exam Head: Present: normocephalic ENT: Present: mucous membranes moist - *Routine Respiratory Exam Present: CTA bilaterally. Absent: respiratory distress - *Routine Cardiovascular Exam Present: RRR - *Routine Abdominal Exam Present: soft, normoactive bowel sounds, obese. Absent: tenderness, distended - *Routine Extremities Exam Present: full ROM, pulses intact. Absent: edema, calf tenderness, extremity cold to touch - *Routine Neurological Exam Present: alert, oriented X3, moving all extremities, normal speech Assessment and Plan (1) Altered mental status Status: Acute Qualifiers: Altered mental status type: disorientation Qualified Code(s): R41.0 - Disorientation, unspecified Category: Medical Code(s): R41.82 - Altered mental status, unspecified (2) Multifocal myoclonus Status: Acute Category: Medical Code(s): G25.3 - Myoclonus (3) Acute kidney injury superimposed on chronic kidney disease Status: Acute Category: Medical Code(s): N17.9 - Acute kidney failure, unspecified; N18.9 - Chronic kidney disease, unspecified (4) Hypertension Status: Acute Category: Medical Code(s): I10 - Essential (primary) hypertension (5) Hyperlipidemia Status: Acute Category: Medical Code(s): E78.5 - Hyperlipidemia, unspecified (6) Elevated lipase Status: Acute Category: Medical Code(s): R74.8 - Abnormal levels of other serum enzymes (7) Osteoarthritis Status: Acute Category: Medical Code(s): M19.90 - Unspecified osteoarthritis, unspecified site - Assessment and plan all Dx Assessment and Plan for all problems:: Renal function slightly improved. WBC has normalized. Further per Dr. Hodges. <Alejandro Hodges - Last Filed: 09/24/21 18:33> Internal Medicine - PN: Subj *Date: 09/24/21 *Time: 18:32 Exam Vital signs and Labs for Last 24 Hours: Temp Pulse Resp BP Pulse Ox 98.1 F 63 20 142/54 H 99 09/24/21 16:00 09/24/21 16:00 09/24/21 16:00 09/24/21 16:00 09/24/21 16:00 Laboratory Results - last 24 hr 09/24/21 05:44: WBC 4.6 L D, RBC
--- NOTE | 2021-09-24 15:49 | PC.NURSE ---
Patient is NSR on the monitor and on room air. Patient is up with standby assist. Patient worked with PT and up in chair. Patient is alert and oriented times 4. Plan of care is possible discharge to home tomorrow. Call light and phone in reach and bed in lowest position.
[2021-09-25] VITALS: PULSE 60
[2021-09-25 04:00] VITALS: BP 141/67; PULSE 60; PULSE 78; RESP 20; TEMP 36.8; O2SAT 98
[2021-09-25 05:00] VITALS: BMI 33.0
[2021-09-25 07:19] LABS: Basophils # 0.1 K/mm3 (0-0.2); Basophils % 1.3 % (0.1-2.0); Eosinophils # 0.4 K/mm3 (0.0-0.4); Eosinophils % 8.4 % (0.1-12.0); Hematocrit 37.6 % (42.0-52.0); Hemoglobin 12.7 g/dL (14.1-18.0); Lymphocytes # 1.8 K/mm3 (0.7-4.5); Lymphocytes % 38.5 % (10-50); Mean Corpuscular HGB Conc 33.8 g/dL (31.8-35.4); Mean Corpuscular Hemoglobin 32.3 pg (27.0-31.2); Mean Corpuscular Volume 95.7 fl (80-94); Monocytes # 0.6 K/mm3 (0.1-1.0); Monocytes % 12.1 % (1.7-9.3); Neutrophils # 1.8 K/mm3 (1.8-7.8); Neutrophils % 39.7 % (37.0-80.0); Platelet Count 125 K/mm3 (142-424); Red Blood Count 3.93 M/mm3 (4.60-6.20); Red Cell Distribution Width 14.5 % (11.5-17.5); White Blood Count 4.6 K/mm3 (4.8-10.8)
[2021-09-25 07:40] LABS: Anion Gap 10.7 mEq/L (5-15); Blood Urea Nitrogen 36 mg/dl (9-20); Calcium 8.3 mg/dl (8.4-10.2); Carbon Dioxide 23 mmol/L (22.0-30.0); Chloride 113 mmol/L (98-107); Creatinine Clearance Estimated 37 mL/min (50-200); Estimated Glomerular Filt Rate 27 ml/min (>60); GFR (African American) 33 ML/MIN (>60); Glucose 96 mg/dl (74-100); Potassium 3.7 mmoL/L (3.5-5.1); Sodium 143 mmol/L (136-145)
[2021-09-25 08:00] VITALS: BP 172/58; PULSE 73; RESP 17; TEMP 36.8; O2SAT 98
--- NOTE | 2021-09-25 08:51 | HMH.ACPN2 ---
<Cher Chung - Last Filed: 09/25/21 08:53> Internal Medicine - PN: Subj *Date: 09/25/21 *Time: 08:53 Interval history: Patient states he is feeling better today. He is anxious to go home. He states his legs have felt better than they have been years and are much stronger. He was able to get to the chair with a walker. He denies any pain. He states he slept well last night and had a good breakfast this morning. Exam Vital signs and Labs for Last 24 Hours: Temp Pulse Resp BP Pulse Ox 98.3 F 73 17 172/58 H 98 09/25/21 08:00 09/25/21 08:00 09/25/21 08:00 09/25/21 08:00 09/25/21 08:00 Laboratory Results - last 24 hr 09/25/21 06:26: WBC 4.6 L, RBC 3.93 L, Hgb 12.7 L, Hct 37.6 L, MCV 95.7 H, MCH 32.3 H, MCHC 33.8, RDW 14.5, Plt Count 125 L, MPV 9.0, Neut % (Auto) 39.7, Lymph % (Auto) 38.5, Riley % (Auto) 12.1 H, Eos % (Auto) 8.4, Baso % (Auto) 1.3, Neut # (Auto) 1.8, Lymph # (Auto) 1.8, Riley # (Auto) 0.6, Eos # (Auto) 0.4, Baso # (Auto) 0.1 09/25/21 06:26: Sodium 143, Potassium 3.7, Chloride 113 H, Carbon Dioxide 23, Anion Gap 10.7, BUN 36 H D, Creatinine 2.30 H D, Estimated Creat Clear 37, Estimated GFR 27 L, Est GFR ( Amer) 33 L D, Glucose 96, Calcium 8.3 L I & O for Last 24 hours: Intake & Output 09/22/21 09/23/21 09/24/21 09/25/21 11:59 11:59 11:59 11:59 Intake Total 120 / 120 660 / 660 2451 / 2451 2628 / 2628 Output Total 225 / 225 300 / 300 Balance -105 / -105 660 / 660 215 / 2151 2628 / 2628 Weight 245 lb 2.464 oz 245 lb 2.464 oz 244 lb 0.827 oz 244 lb 6 oz - Constitutional no acute distress - *Routine Respiratory Exam Present: CTA bilaterally - *Routine Cardiovascular Exam Present: RRR - *Routine Abdominal Exam Present: soft, normoactive bowel sounds. Absent: tenderness - *Routine Extremities Exam Present: edema (trace bilateral LE). Absent: cyanosis, clubbing - *Routine Skin Exam Present: warm. Absent: rash - *Routine Neurological Exam Present: alert, oriented X3 Assessment and Plan (1) Altered mental status Status: Acute Qualifiers: Altered mental status type: disorientation Qualified Code(s): R41.0 - Disorientation, unspecified Category: Medical Code(s): R41.82 - Altered mental status, unspecified (2) Multifocal myoclonus Status: Acute Category: Medical Code(s): G25.3 - Myoclonus (3) Acute kidney injury superimposed on chronic kidney disease Status: Acute Category: Medical Code(s): N17.9 - Acute kidney failure, unspecified; N18.9 - Chronic kidney disease, unspecified (4) Hypertension Status: Acute Category: Medical Code(s): I10 - Essential (primary) hypertension (5) Hyperlipidemia Status: Acute Category: Medical Code(s): E78.5 - Hyperlipidemia, unspecified (6) Elevated lipase Status: Acute Category: Medical Code(s): R74.8 - Abnormal levels of other serum enzymes (7) Osteoarthritis Status: Acute Category: Medical Code(s): M19.90 - Unspecified osteoarthritis, unspecified site - Assessment and plan all Dx Assessment and Plan for all problems:: Patient's renal function has improved. He is stable to be discharged home with home health. He will need to follow-up with his primary care physician and will need outpatient appointments with nephrology and neurology. <Alejandro Hodges - Last Filed: 09/25/21 12:24> Internal Medicine - PN: Subj *Date: 09/25/21 *Time: 12:24 Exam Vital signs and Labs for Last 24 Hours: Temp Pulse Resp BP Pulse Ox 98.3 F 73 17 172/58 H 98 09/25/21 08:00 09/25/21 08:00 09/25/21 08:00 09/25/21 08:00 09/25/21 08:00 Laboratory Results - last 24 hr 09/25/21 06:26: WBC 4.6 L, RBC 3.93 L, Hgb 12.7 L, Hct 37.6 L, MCV 95.7 H, MCH 32.3 H, MCHC 33.8, RDW 14.5, Plt Count 125 L, MPV 9.0, Neut % (Auto) 39.7, Lymph % (Auto) 38.5, Riley % (Auto) 12.1 H, Eos % (Auto) 8.4, Baso % (Auto) 1.3, Neut # (Auto) 1.8, Lymph # (Auto) 1.8, Riley # (Auto) 0.6, Eos #
--- NOTE | 2021-09-29 18:06 | HMH.DCSUM ---
General - General Admission date:: 09/21/21 <Alejandro Hodges - 11/28/21 17:54> 09/21/21 <Cher Chung - 09/29/21 18:12> Discharge date: 09/25/21 <SheldonCher - 09/29/21 18:12> HPI HPI: Mr. Faith is an 85-year-old white male with a history of hypertension, hyperlipidemia, BPH, and arthritis who who presented to the emergency room initially as a stroke alert. He was brought in by his son around 5 PM stating that at noon he noticed he was more confused and was having difficulty ambulating and following commands and was slurring some of his words. No family is present at the time of my exam this morning but according to the ER record, he has been having slowly progressive symptoms over several weeks. In fact he was hospitalized at [facility] in July with similar symptoms which resolved within 24 hours and he was diagnosed with TIA. He had another episode about 2 years ago and had a more complete work-up including MRI and MRA of the brain which showed nothing acute. This information is obtained from records required from [facility]. Evaluation in our emergency room yesterday was remarkable for an elevated creatinine of 3.0 with no known history of chronic kidney disease although on record review from [facility] his creatinine in July was 1.9. He apparently was on diuretics at that time and these were discontinued. Noncontrast CT scan of the head in the ER showed age-related small vessel ischemic changes. During the course of his evaluation in the emergency room, his neurologic symptoms did seem to improve. The ER physician documented that his speech seemed to be more clear and he was moving all extremities. He was subsequently admitted for further neurologic observation and also evaluation of his acute renal insufficiency. Nursing staff notes that he was restless throughout the night and was confused. He did not sleep well. His creatinine is increased to 3.9 this morning. His daughter has arrived to the hospital and provides additional information. She however lives in [place] and sees her father only every few weeks. She does speak with him frequently on the phone and states that she had a long conversation 4 days ago and his mental status was normal at that time. She also reports that he was mowing his grass and driving his car last week. She is aware of the previous episodes he has had and states that this one is similar but has lasted longer than the other episodes. He lives alone and manages his own medication although his son lives nearby and checks on him frequently. <Cher Chung - 09/29/21 18:12> Hospital Course Hospital Course: The patient was admitted for further evaluation. Etiology of his altered mental status seem to be on the basis of his acute kidney injury. There is no obvious source of infection and his electrolytes were normal. His tox screen was negative. In speaking with his daughter, she seemed to think his symptoms were more acute in nature although the history given by his son to the ER physician noted some slowly progressive changes over several weeks. He was gently hydrated and his renal function was monitored. He was continued on his home medications and it was felt he may need an MRI at a later date. The patient did have a renal ultrasound which was unremarkable. He was able to sit up and eat and his mental status improved. He was able to get up and go to the bathroom with assistance. His speech returned to normal, but he was weaker than baseline. A chest x-ray was ordered as was an MRI. His chest x-ray showed nothing acute and his brain MRI showed nothing acute. He continued to improve and get stronger. He was able to ambulate to the bathroom with a walker. His white blood cell count normalized and his renal function improved. By 09/25/2021 he felt much better and was anxious to go home. He was stable to be discharged home wit
== END 2021-09-25 10:00 | disposition home health service (06) | DRG 684 ==
LOC: ER 19:09 → 2ND 19:48
PROVIDERS: Admitting Provider Family Medicine; Emergency Provider Emergency Medicine; PCP Family Medicine; Visit Provider Family Medicine
DX: N17.9 Acute kidney failure, unspecified (principal); G25.3 Myoclonus; I12.9 Hypertensive chronic kidney disease with stage 1 through stage 4 chronic kidney disease, or unspecified chronic kidney disease; N18.9 Chronic kidney disease, unspecified; M19.90 Unspecified osteoarthritis, unspecified site; Z20.822 Contact with and (suspected) exposure to COVID-19; Z87.891 Personal history of nicotine dependence
CPT/HCPCS: 36415; 70450; 70551; 71045; 76770; 80048; 80053; 80305; 81001; 83690; 83735; 83880; 84443; 84484; 85007; 85025; 87040; 93005; 97116; 97161; 97165; 97530; 99284; C9803; J0692; U0003; U0005

== ENCOUNTER → 2021-09-30 09:38 | Outpatient (CLI) | payer MEDICARE, MEDICAID, SELFPAY ==
[2021-09-30 10:41] LABS: Basophils # 0.1 K/mm3 (0-0.2); Basophils % 1.1 % (0.1-2.0); Eosinophils # 0.4 K/mm3 (0.0-0.4); Eosinophils % 5.5 % (0.1-12.0); Hematocrit 38.7 % (42.0-52.0); Hemoglobin 13.2 g/dL (14.1-18.0); Lymphocytes % 30.1 % (10-50); Mean Corpuscular HGB Conc 34.2 g/dL (31.8-35.4); Mean Corpuscular Hemoglobin 33.2 pg (27.0-31.2); Mean Corpuscular Volume 97.1 fl (80-94); Monocytes # 0.5 K/mm3 (0.1-1.0); Neutrophils # 3.8 K/mm3 (1.8-7.8); Neutrophils % 56.4 % (37.0-80.0); Platelet Count 167 K/mm3 (142-424); Red Blood Count 3.99 M/mm3 (4.60-6.20); Red Cell Distribution Width 14.2 % (11.5-17.5); White Blood Count 6.7 K/mm3 (4.8-10.8)
[2021-09-30 10:57] LABS: Chloride 106 mmol/L (98-107); Potassium 4.2 mmoL/L (3.5-5.1); Sodium 141 mmol/L (136-145)
[2021-09-30 10:59] LABS: Blood Urea Nitrogen 32 mg/dl (9-20); Estimated Glomerular Filt Rate 24 ml/min (>60); GFR (African American) 29 ML/MIN (>60)
[2021-09-30 11:00] LABS: Alanine Aminotransferase 42 U/L (12-78); Albumin Level 3.7 g/dl (3.5-5.0); Albumin/Globulin Ratio 1.3 (1.1-1.8); Alkaline Phosphatase 78 U/L (38-126); Anion Gap 12.2 mEq/L (5-15); Aspartate Amino Transferase 54 U/L (17-59); Bilirubin,Total 1.4 mg/dl (0.2-1.3); Carbon Dioxide 27 mmol/L (22.0-30.0); Globulin 2.8 g/dL (1.3-3.2); Glucose 90 mg/dl (74-100); Total Protein,Serum 6.5 g/dl (6.3-8.2)
[2021-09-30 11:31] LABS: Thyroid Stimulating Hormone 4.67 uIU/mL (0.465-4.68)
[2021-09-30 12:45] LABS: Vitamin B12 799 pg/mL (239-931)
[2021-09-30 13:04] LABS: Folate 8.83 ng/mL
[2021-10-01 13:10] LABS: Rapid Plasma Reagin Ab Titer Non Reactive (NonRea<1:1)
[2021-10-08 16:11] LABS: Vitamin B1 111.5 nmol/L (66.5-200.0)
== END ==
PROVIDERS: Visit Provider Nurse Practitioner Family
DX: G93.40 Encephalopathy, unspecified (principal); I99.8 Other disorder of circulatory system; R41.82 Altered mental status, unspecified
CPT/HCPCS: 36415; 80053; 82607; 82746; 84425; 84443; 85025; 86592

== ENCOUNTER 2021-12-14 18:40 | Observation (INO) | payer MEDICARE, MEDICAID, SELFPAY ==
[2021-12-14 18:41] VITALS: PULSE 78; RESP 18; TEMP 37.4; O2SAT 98; BMI 28.7
--- NOTE | 2021-12-14 19:07 | CT_ITS ---
PROCEDURE INFORMATION: Exam: CT Head Without Contrast Exam date and time: 12/14/2021 7:07 PM Age: 86 years old Clinical indication: Other: General weakness off balance TECHNIQUE: Imaging protocol: Computed tomography of the head without contrast. Radiation optimization: All CT scans at this facility use at least one of these dose optimization techniques: automated exposure control; mA and/or kV adjustment per patient size (includes targeted exams where dose is matched to clinical indication); or iterative reconstruction. COMPARISON: No relevant prior studies available. FINDINGS: Brain: White matter changes compatible with small vessel occlusive change. No mass. No hemorrhage. Cerebral ventricles: No ventriculomegaly. Paranasal sinuses: No fluid levels. Mastoid air cells: Visualized mastoid air cells are well aerated. Bones/joints: No acute fracture. Soft tissues: No significant soft tissue abnormality. IMPRESSION: Chronic changes without acute process.
--- NOTE | 2021-12-14 19:09 | XR_ITS ---
PROCEDURE INFORMATION: Exam: XR Chest Exam date and time: 12/14/2021 7:09 PM Age: 86 years old Clinical indication: Other: Weakness TECHNIQUE: Imaging protocol: XR of the chest. Views: 1 view. COMPARISON: CR XR CHEST PORTABLE 09/23/2021 9:51 AM FINDINGS: Lungs: Low lung volumes with hypoventilatory changes at the lung bases. No lobar consolidation. Pleural spaces: No pneumothorax. Heart/Mediastinum: No cardiomegaly. Bones/joints: Degenerative changes of the shoulders. IMPRESSION: Low lung volumes with hypoventilatory changes at the lung bases.
[2021-12-14 19:15] LABS: Basophils # 0.1 K/mm3 (0-0.2); Basophils % 0.9 % (0.1-2.0); Eosinophils # 0.2 K/mm3 (0.0-0.4); Eosinophils % 2.9 % (0.1-12.0); Hematocrit 44.5 % (42.0-52.0); Hemoglobin 14.3 g/dL (14.1-18.0); Lymphocytes # 2.5 K/mm3 (0.7-4.5); Lymphocytes % 36.5 % (10-50); Mean Corpuscular HGB Conc 32.1 g/dL (31.8-35.4); Mean Corpuscular Volume 106.1 fl (80-94); Mean Platelet Volume 8.5 fl (7.4-10.4); Monocytes # 0.6 K/mm3 (0.1-1.0); Monocytes % 8.9 % (1.7-9.3); Neutrophils # 3.4 K/mm3 (1.8-7.8); Neutrophils % 50.8 % (37.0-80.0); Platelet Count 149 K/mm3 (142-424); Red Blood Count 4.19 M/mm3 (4.60-6.20); Red Cell Distribution Width 15.1 % (11.5-17.5); White Blood Count 6.7 K/mm3 (4.8-10.8)
[2021-12-14 19:17] LABS: Chloride 111 mmol/L (98-107)
[2021-12-14 19:18] LABS: Potassium 4.2 mmoL/L (3.5-5.1); Sodium 139 mmol/L (136-145)
[2021-12-14 19:20] LABS: Alanine Aminotransferase 39 U/L (12-78); Alkaline Phosphatase 62 U/L (38-126); Aspartate Amino Transferase 47 U/L (17-59); Bilirubin,Total 1.9 mg/dl (0.2-1.3); Blood Urea Nitrogen 21 mg/dl (9-20); Creatinine Clearance Estimated 69 mL/min (50-200); Estimated Glomerular Filt Rate 71 ml/min (>60); GFR (African American) 86 ML/MIN (>60)
[2021-12-14 19:21] LABS: Albumin Level 3.6 g/dl (3.5-5.0); Albumin/Globulin Ratio 1.2 (1.1-1.8); Anion Gap 5.2 mEq/L (5-15); Calcium 9.2 mg/dl (8.4-10.2); Carbon Dioxide 27 mmol/L (22.0-30.0); Glucose 85 mg/dl (74-100); Total Protein,Serum 6.6 g/dl (6.3-8.2)
[2021-12-14 19:29] LABS: POC Glucose,Bedside 81 (70-110)
--- NOTE | 2021-12-14 19:52 | CT_ITS ---
PROCEDURE INFORMATION: Exam: CT Angiography Neck With Contrast Exam date and time: 12/14/2021 7:52 PM Age: 86 years old Clinical indication: Weakness and other: Weakness, slurred speech, off balance; Additional info: Stroke workup, slurred speech TECHNIQUE: Imaging protocol: Computed tomography angiography of the neck with contrast. 3D rendering (Not supervised by radiologist): MIP and/or 3D reconstructed images were created by the technologist. Radiation optimization: All CT scans at this facility use at least one of these dose optimization techniques: automated exposure control; mA and/or kV adjustment per patient size (includes targeted exams where dose is matched to clinical indication); or iterative reconstruction. Contrast material: ISOVUE 370; Contrast volume: 100 ml; Contrast route: INTRAVENOUS (IV); COMPARISON: CT HEAD/BRAIN WO CON 12/14/2021 7:12 PM FINDINGS: Right common carotid artery: There is calcified plaque in the distal right common carotid artery resulting in moderate, 50-60%, stenosis. Right internal carotid artery: There is calcified plaque in the proximal right internal carotid artery in moderate, 50-60%, stenosis. Right external carotid artery: No occlusion or stenosis of the origin. Left common carotid artery: The origin of the left common carotid artery is not included on the scan. There is calcified plaque in the distal left common carotid artery resulting in moderate, 50-60%, stenosis. Left internal carotid artery: There is calcified plaque in the proximal left internal carotid artery resulting in moderate, 50-60%, stenosis. Left external carotid artery: No occlusion or stenosis of the origin. Right vertebral artery: No stenosis. No dissection or occlusion. Left vertebral artery: The left vertebral artery is dominant. No stenosis. No dissection. Soft tissues: Of incidental note is a large, 9 cm, right supraclavicular soft tissue lipoma. Bones/joints: No acute fracture. Multilevel disc findings: There is multilevel cervical spondylosis and disc space narrowing. IMPRESSION: 1. 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 No vertebral artery stenosis. REFERENCES: NASCET CRITERIA. The degree of internal carotid artery stenosis is based on NASCET criteria. Normal is no stenosis. Mild is less than 50% stenosis. Moderate is 50-69% stenosis. Severe is 70% to 99% stenosis. Total occlusion is no detectable patent lumen.
--- NOTE | 2021-12-14 19:52 | CT_ITS ---
PROCEDURE INFORMATION: Exam: CT Angiography Head With Contrast, Arteriography Exam date and time: 12/14/2021 7:52 PM Age: 86 years old Clinical indication: Other: Weakness slurred speech off balance; Additional info: Stroke workup, slurred speech TECHNIQUE: Imaging protocol: Computed tomography angiography of the head with contrast. Exam focused on the arteries. 3D rendering (Not supervised by radiologist): MIP and/or 3D reconstructed images were created by the technologist. Radiation optimization: All CT scans at this facility use at least one of these dose optimization techniques: automated exposure control; mA and/or kV adjustment per patient size (includes targeted exams where dose is matched to clinical indication); or iterative reconstruction. Contrast material: ISOVUE 370; Contrast volume: 100 ml; Contrast route: INTRAVENOUS (IV); COMPARISON: CT HEAD/BRAIN WO CON 12/14/2021 7:12 PM FINDINGS: ANTERIOR CIRCULATION: Right internal carotid artery: There is calcified plaque in the right carotid siphon. No stenosis. No aneurysm. Right middle cerebral artery: Unremarkable. No occlusion or significant stenosis. No aneurysm. Right anterior cerebral artery: There is a dominant A1 segment of the right anterior cerebral artery. No occlusion or significant stenosis. No aneurysm. Left internal carotid artery: There is calcified plaque in the left carotid siphon. No stenosis. No aneurysm. Left middle cerebral artery: Unremarkable. No occlusion or significant stenosis. No aneurysm. Left anterior cerebral artery: There is a hypoplastic A1 segment of the left anterior cerebral artery.. No occlusion or significant stenosis. No aneurysm. POSTERIOR CIRCULATION: Right vertebral artery: The right vertebral artery is hypoplastic and terminates at the level of the right PICA. No superimposed stenosis. No aneurysm. Left vertebral artery: There is a dominant left vertebral artery. No stenosis. No aneurysm. Basilar artery: Unremarkable. No occlusion or significant stenosis. No aneurysm. Right posterior cerebral artery: There is a partial origin of the right posterior cerebral artery. No stenosis. No aneurysm. Left posterior cerebral artery: Unremarkable. No occlusion or significant stenosis. No aneurysm. IMPRESSION: No intracranial stenosis or occlusion.
--- NOTE | 2021-12-14 19:52 | HMH.EDGENADL ---
ED Disposition Clinical Impression: Aphasia Disposition: Admitted As Inpatient Condition on Discharge: Good Referrals: Rody Garcia APRN [Primary Care Provider] - - Critical Care Critical Care Time: Yes Attestation: On 12/14/21, the high probability of a clinically significant, sudden or life threatening deterioration of the following system(s) required my full and direct attention, intervention and personal management. The time I documented below is in addition to time spent performing reported procedures but includes the following listed in this critical care notation. Total Critical Care Time: 35 Vital system(s) involved:: Central Nervous System My critical care processes included: Assessment & monitoring of V/S, Initial and Re-exams, Data Review/Interpretation, Coordinating Care, Medication Orders and management, Documentation Medical Decision Making - Medical Records Medical records reviewed: Yes: I reviewed the patient's medical records. - James Inquiry Pt receiving controlled substance: No Vital Signs: 12/14/21 18:41 Temperature 99.4 F Temperature Source Oral Pulse Rate [Radial] 78 Respiratory Rate 18 02 Sat by Pulse Oximetry 98 Oxygen Delivery Method Room Air - Lab Data Lab Results 12/14/21 18:47: POC Glucose 81 12/14/21 19:00: WBC 6.7, RBC 4.19 L, Hgb 14.3, Hct 44.5, MCV 106.1 H, MCH 34.0 H, MCHC 32.1, RDW 15.1, Plt Count 149, MPV 8.5, Neut % (Auto) 50.8, Lymph % (Auto) 36.5, [place] % (Auto) 8.9, Eos % (Auto) 2.9, Baso % (Auto) 0.9, Neut # (Auto) 3.4, Lymph # (Auto) 2.5, [place] # (Auto) 0.6, Eos # (Auto) 0.2, Baso # (Auto) 0.1 12/14/21 19:00: Sodium 139, Potassium 4.2, Chloride 111 H, Carbon Dioxide 27, Anion Gap 5.2, BUN 21 H, Creatinine 1.00, Estimated Creat Clear 69, Estimated GFR 71, Est GFR ( Amer) 86, Glucose 85, Calcium 9.2, Total Bilirubin 1.9 H, AST 47, ALT 39, Alkaline Phosphatase 62, Total Protein 6.6, Albumin 3.6, Globulin 3.0, Albumin/Globulin Ratio 1.2 12/14/21 19:45: Urine Color Dk yellow, Urine Appearance Clear, Urine pH 6.5, Ur Specific [place] 1.015, Urine Protein Negative, Urine Glucose (UA) Negative, Urine Ketones Negative, Urine Blood Negative, Urine Nitrate Negative, Urine Bilirubin Negative, Urine Urobilinogen 4.0, Ur Leukocyte Esterase Negative, Urine WBC 3-5, Ur Squamous Epith Cells 3-5, Urine Bacteria Trace Result diagrams: 12/14/21 19:00 12/14/21 19:00 Orders (Tests/Meds): ORDERS Category Date Time Status CT angio head Stat Cat Scan 12/14/21 19:[address] angio neck Stat Cat Scan 12/14/21 19:52 Ordered CA carotid duplex BI Stat Y 12/14/21 20:23 Ordered CA echo doppler complete Stat Y 12/14/21 20:23 Ordered Medical Decision Narrative: Patient is an 86-year-old male presents the ED today for further evaluation of aphasia, has recurred for greater than 24 hours, patient is not having any lateralizing deficits at this time, but 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 Del Real in the clinic back in September, patient's son at bedside also corroborates that this has been going on for some time the last couple of days, these are very similar to the symptoms that patient had which had resolved as a TIA last time he was here, no work-up for acute stroke at this time, as patient has a low NIH, of 2, but with the aphasia would want to make sure this is not an acute stroke or bleed. Will order CT head without IV contrast, CBC, CMP, order EKG as well. I will to order vascular imaging as well of the head and neck, however want to ensure the patient's creatinine is significantly elevated as it was last time. Patient's creatinine is 1.0, we will proceed with neurovascular imaging. The patient symptoms of been going on for longer than 24 hours, there is no intervention be a thrombectomy or TPA could be accomplished with patient, however we will admit him as n.p.o., and will further treat patient. I have ordered an ech
[2021-12-14 19:56] LABS: Microscopic, Urine URINE MICROSCOPIC (MICROSCOPIC)
[2021-12-14 20:03] LABS: Appearance,Urine CLEAR (Clear); Bilirubin,Urine Negative (Negative); Blood, Urine Negative (Negative); Color,Urine DK YELLOW (Yellow); Glucose,Urine (UA) Negative (Negative); Ketones,Urine Negative (Negative); Leukocyte Esterase,Urine Negative (Negative); Nitrate,Urine Negative (Negative); PH,Urine 6.5 (5.0-8.5); Protein,Urine Negative (Negative); Specific Gravity, Urine 1.015 (1.005-1.030)
[2021-12-14 20:11] LABS: Bacteria,Urine Trace /lpf
[2021-12-14 21:00] VITALS: BP 140/100; PULSE 64; O2SAT 96
[2021-12-14 21:13] LABS: Coronavirus 19, PCR Not Detected (NotDetected); Influenza A, PCR Not Detected (NotDetected); Influenza B, PCR Not Detected (NotDetected)
[2021-12-14 21:19] VITALS: BP 140/100; PULSE 69; RESP 19; TEMP 36.9; O2SAT 96
--- NOTE | 2021-12-14 22:28 | PC.NURSE ---
patient up to floor via wheelchair @ this time.
[2021-12-14 22:47] VITALS: BP 172/84; PULSE 87; RESP 21; TEMP 36.3; O2SAT 97
[2021-12-14 22:48] VITALS: BMI 355230.2
[2021-12-14 23:29] VITALS: BP 150/84
[2021-12-15 04:00] VITALS: BP 198/90; PULSE 74; RESP 15; TEMP 36.4; O2SAT 95
--- NOTE | 2021-12-15 04:47 | PC.NURSE ---
manual bp reported to calderon JACOME
[2021-12-15 05:04] VITALS: BMI 35.4
[2021-12-15 05:15] VITALS: BP 148/80
[2021-12-15 07:56] LABS: Basophils % 0.6 % (0.1-2.0); Eosinophils # 0.2 K/mm3 (0.0-0.4); Eosinophils % 2.6 % (0.1-12.0); Hematocrit 42.8 % (42.0-52.0); Hemoglobin 13.9 g/dL (14.1-18.0); Lymphocytes # 1.9 K/mm3 (0.7-4.5); Mean Corpuscular HGB Conc 32.4 g/dL (31.8-35.4); Mean Corpuscular Hemoglobin 33.9 pg (27.0-31.2); Mean Corpuscular Volume 104.6 fl (80-94); Mean Platelet Volume 8.4 fl (7.4-10.4); Monocytes # 0.4 K/mm3 (0.1-1.0); Monocytes % 7.6 % (1.7-9.3); Neutrophils % 54.2 % (37.0-80.0); Platelet Count 147 K/mm3 (142-424); Red Blood Count 4.09 M/mm3 (4.60-6.20); Red Cell Distribution Width 14.8 % (11.5-17.5); White Blood Count 5.5 K/mm3 (4.8-10.8)
[2021-12-15 08:00] VITALS: BP 176/82; PULSE 74; RESP 16; TEMP 36.7; O2SAT 92
[2021-12-15 08:01] LABS: Chloride 112 mmol/L (98-107); Potassium 3.9 mmoL/L (3.5-5.1); Sodium 138 mmol/L (136-145)
[2021-12-15 08:04] LABS: Anion Gap 4.9 mEq/L (5-15); Blood Urea Nitrogen 18 mg/dl (9-20); Carbon Dioxide 25 mmol/L (22.0-30.0); Cholesterol 155 mg/dl (140-200); Creatinine Clearance Estimated 86 mL/min (50-200); Estimated Glomerular Filt Rate 71 ml/min (>60); GFR (African American) 86 ML/MIN (>60); Triglycerides 48 mg/dl (30-150); VLDL Cholesterol 10 mg/dL (0-40)
[2021-12-15 08:05] LABS: Calcium 8.9 mg/dl (8.4-10.2); Glucose 113 mg/dl (74-100); HDL Cholesterol 52 mg/dl (40-60); INR 1.09 (0.9-1.1); Magnesium 1.7 mg/dl (1.6-2.3); Prothrombin Time 12.2 seconds (10.1-12.5)
[2021-12-15 08:15] LABS: Direct LDL Cholesterol 74.36 mg/dL (100-129)
--- NOTE | 2021-12-15 08:51 | HMH.PHAVTE ---
[facility] Pharmacy VTE Monitoring - Patient Demographics Admission date: 12/14/21 Report Date: 12/15/21 Time: 08:51 Allergies/Adverse Reactions: Patient Allergies No Known Allergies Allergy (Verified 09/30/21 08:25) Height: 1.78 m Weight: 112.355 kg Patient Problems: Current Active Problems Aphasia (Acute) - VTE Risk Labs: VTE Related Lab Results Hgb 13.9 g/dL (14.1-18.0) L 12/15/21 07:19 Hct 42.8 % (42.0-52.0) 12/15/21 07:19 Plt Count 147 K/mm3 (142-424) 12/15/21 07:19 PT 12.2 seconds (10.1-12.5) 12/15/21 07:19 INR 1.09 (0.9-1.1) 12/15/21 07:19 BUN 18 mg/dl (9-20) 12/15/21 07:19 Creatinine 1.00 mg/dl (0.66-1.25) 12/15/21 07:19 Estimated Creat Clear 86 mL/min (50-200) 12/15/21 07:19 - Prophylaxis VTE Prophylaxis Ordered?: Yes Types of VTE Prophylaxis: TEDS Knee High Location of Applied Device: Bilateral Lower Extremeties
--- NOTE | 2021-12-15 08:54 | HMH.PHAINT ---
MEDICATION RECONCILIATION COMPLETED ON PATIENT USING EXTERNAL FILL HISTORY FROM PHARMACY. -NGUYỄN POOLE, MARISOLD
--- NOTE | 2021-12-15 09:58 | HMH.HP ---
*Admission Date: 12/14/21 *Chief complaint: Slurred speech *History of present illness: Patient is an 86 year old male that identifies nurse practitioner Maxine Garcia as his primary care provider. he presented to [facility] ER last night with a 24 hour history of slurring speech. Patient states he had a similar episode a few months ago and was treated her at [facility] and was diagnosed with a TIA. He has seen Dr. Del Real, in neurology, several times in follow up since that admission. She has also diagnosed patient with myoclonus and mild cognitive impairment. On the day prior to admission patient states he was feeling well and then all of a sudden was slurring his words. He no other neurological symptoms at that time. His son brought him to the ER and confirmed his report of no other symptoms. Patient states he had been taking all of his medication as prescribed. [facility] History Medical History: Reports:: Hyperlipidemia, Hypertension, Renal Insufficiency, Transient Ischemic Attacks (TIA), Urinary Tract Infection Denies:: Atherosclerotic Heart Disease, Cerebrovascular Accident, Diabetes Mellitus Type 1, Diabetes Mellitus Type 2 *Have you ever received a pneumonia vaccine?: No *Have you received a flu vaccine this season?: No Other Medical History: Reports: Arthritis, Other (Myoclonus, MCI, CKD) Other Surgeries: Yes: No Previous Surgery, Other Amputation: No Fractures: No - *Social History Smoking Status: Former smoker Tobacco Type: cigarettes # Packs/Day (cigarettes): 1 #Yrs smoked (if former smoker): 10 Smoking End Date: 40 years ago Alcohol Intake: former Alcohol Intake Frequency:: a few times a week Substance Use Type: denies use *Occupational Status:: unemployed Housing: house Household Members: children *Travel in the last 8 weeks: None Family Hx:: Other, Diabetes, Hypertension Review of Systems - Constitutional Denies fever(s) - Eyes Denies blurry vision - ENT Denies nosebleed - *Cardiovascular Denies chest pain - *Respiratory Denies cough - *Gastrointestinal Denies abdominal pain - *Genitourinary Denies difficulty urinating - *Musculoskeletal Denies muscle cramps - Integumentary/Breasts Denies rash - *Neurologic Denies dizziness - Psychiatric Reports anxiety - Endocrine Denies excessive sweating - Hematologic/Lymphatic Denies easy bruising Meds Home Medications Medication Instructions Recorded Confirmed Type Aspirin [Aspirin EC 325mg Tab] 325 mg PO DAILY 11/13/21 02/05/22 History Atorvastatin Calcium [Lipitor 40mg 40 mg PO DAILY 09/21/21 12/14/21 History Tab] Finasteride [Proscar 5mg Tablet] 5 mg PO DAILY 09/21/21 12/14/21 History Losartan Potassium 50 mg PO DAILY 09/21/21 12/14/21 History carvediloL [Carvedilol 6.25mg Tab] 6.25 mg PO DAILY 09/21/21 12/14/21 History Triamterene/Hydrochlorothiazid 1 each PO DAILY 12/14/21 12/14/21 History [Triamterene-Hctz 75-50 mg Tab] Allergies Allergy/AdvReac Type Severity Reaction Status Date / Time No Known Allergies Allergy Verified 09/30/21 08:25 Exam Vital signs and Labs for Last 24 Hours: Temp Pulse Resp BP Pulse Ox 98.1 F 74 16 176/82 H 92 L 12/15/21 08:00 12/15/21 08:00 12/15/21 08:00 12/15/21 08:00 12/15/21 08:00 Laboratory Results - last 24 hr 12/14/21 18:47: POC Glucose 81 12/14/21 19:00: WBC 6.7, RBC 4.19 L, Hgb 14.3, Hct 44.5, MCV 106.1 H, MCH 34.0 H, MCHC 32.1, RDW 15.1, Plt Count 149, MPV 8.5, Neut % (Auto) 50.8, Lymph % (Auto) 36.5, [place] % (Auto) 8.9, Eos % (Auto) 2.9, Baso % (Auto) 0.9, Neut # (Auto) 3.4, Lymph # (Auto) 2.5, [place] # (Auto) 0.6, Eos # (Auto) 0.2, Baso # (Auto) 0.1 12/14/21 19:00: Sodium 139, Potassium 4.2, Chloride 111 H, Carbon Dioxide 27, Anion Gap 5.2, BUN 21 H, Creatinine 1.00, Estimated Creat Clear 69, Estimated GFR 71, Est GFR ( Amer) 86, Glucose 85, Calcium 9.2, Total Bilirubin 1.9 H, AST 47, ALT 39, Alkaline Phosphatase 62, Total Protein 6.6, Albumin 3.6, Globulin 3
--- NOTE | 2021-12-15 15:40 | PC.NURSE ---
PT IS SITTING UP IN THE CHAIR. ALERT AND ORIENTED X4. THIS MORNING ON ASSESSMENT PT'S ONLY COMPLAINT WAS HOW HUNGRY HE WAS. CARDIAC DIET WAS ORDERED. PT HAS TOLERATED DIET WELL. PT CONTINUES TO HAVE SOME SLURRED SPEECH. PT AMBULATES TO THE BATHROOM. LUNG SOUNDS CLEAR. ABDOMEN SOFT/NON TENDER WITH ACTIVE BOWEL SOUNDS.WILL CONTINUE TO MONITOR.
[2021-12-15 15:52] VITALS: BP 135/66; PULSE 70; RESP 16; TEMP 36.8; O2SAT 97
[2021-12-15 20:00] VITALS: BP 174/75; PULSE 70; RESP 18; TEMP 36.8; O2SAT 95
[2021-12-16 04:00] VITALS: BP 174/91; PULSE 72; RESP 18; TEMP 36.6; O2SAT 96
[2021-12-16 05:13] VITALS: BMI 34.9
[2021-12-16 07:44] VITALS: BP 192/84; PULSE 69; RESP 18; TEMP 36.6; O2SAT 98
--- NOTE | 2021-12-16 08:39 | HMH.ACPN2 ---
<Sharon Cason - Last Filed: 12/16/21 08:39> Internal Medicine - PN: Subj *Date: 12/16/21 *Time: 08:39 Interval history: Patient feels he is doing well. He feels his speech is better. He had his echo done this morning and is hungry for breakfast. He is moving all extremities without difficulty. He denies chest pain and shortness of breath. He is voiding QS. Carotid ultrasound done with the following results: IMPRESSION: Less than 50% bilateral carotid stenosis. Bilateral patent vertebral arteries with antegrade flow. If indicated, CTA or MRA could further evaluate. Exam Vital signs and Labs for Last 24 Hours: Temp Pulse Resp BP Pulse Ox 97.9 F 69 18 192/84 H 98 12/16/21 07:44 12/16/21 07:44 12/16/21 07:44 12/16/21 07:44 12/16/21 07:44 I & O for Last 24 hours: Intake & Output 12/13/21 12/14/21 12/15/21 12/16/21 11:59 11:59 11:59 11:59 Intake Total 1298 / 1298 Balance 1298 / 1298 Weight 247 lb 11.2 oz 244 lb 3.2 oz - Constitutional no acute distress - *Routine Respiratory Exam Present: crackles (Few left basilar) - *Routine Cardiovascular Exam Present: RRR - *Routine Abdominal Exam Present: soft, normoactive bowel sounds, obese. Absent: tenderness - *Routine Extremities Exam Absent: edema, calf tenderness - *Routine Neurological Exam Present: alert, oriented X3, moving all extremities. 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 Most likely metabolic etiology. Status: Acute Category: Medical Code(s): G25.3 - Myoclonus (4) TIA (transient ischemic attack) Status: Acute Category: Medical Code(s): G45.9 - Transient cerebral ischemic attack, unspecified (5) Hyperlipidemia Status: Chronic Category: Medical Code(s): E78.5 - Hyperlipidemia, unspecified (6) Osteoarthritis Status: Chronic Category: Medical Code(s): M19.90 - Unspecified osteoarthritis, unspecified site - Assessment and plan all Dx Assessment and Plan for all problems:: Patient states that he feels much better. Continuing care. Possibly home today. <Donnell Stahl - Last Filed: 12/16/21 09:05> Internal Medicine - PN: Subj *Date: 12/16/21 *Time: 09:05 Exam Vital signs and Labs for Last 24 Hours: Temp Pulse Resp BP Pulse Ox 97.9 F 69 18 192/84 H 98 12/16/21 07:44 12/16/21 07:44 12/16/21 07:44 12/16/21 07:44 12/16/21 07:44 I & O for Last 24 hours: Intake & Output 12/13/21 12/14/21 12/15/21 12/16/21 23:59 23:59 23:59 23:59 Intake Total 1298 / 1298 Balance 1298 / 1298 Weight 247 lb 9.6 oz 247 lb 11.2 oz 244 lb 3.2 oz Assessment and Plan (1) Aphasia Status: Acute Category: Medical Code(s): R47.01 - Aphasia (2) Hypertension Status: Acute Category: Medical Code(s): I10 - Essential (primary) hypertension (3) Multifocal myoclonus Problem details: In the setting of worsening of CRI, UTI, dehydration. Most likely metabolic etiology. Status: Acute Category: Medical Code(s): G25.3 - Myoclonus (4) TIA (transient ischemic attack) Status: Acute Category: Medical Code(s): G45.9 - Transient cerebral ischemic attack, unspecified (5) Hyperlipidemia Status: Chronic Qualifiers: Category: Medical Code(s): E78.5 - Hyperlipidemia, unspecified (6) Osteoarthritis Status: Chronic Qualifiers: Category: Medical Code(s): M19.90 - Unspecified osteoarthritis, unspecified site - Assessment and plan all Dx Assessment and Plan for all problems:: Saw patient, agree with above note. Increase BP medication today.
[2021-12-16 10:51] VITALS: BMI 34.7
--- NOTE | 2021-12-16 20:23 | CA_ITS ---
FINAL REPORT TECHNIQUE: Color Doppler, duplex Doppler and melvin scale sonography of the bilateral neck arterial vasculature was performed. Velocities were measured in the carotid arteries. Stenosis evaluation based on the validated velocity criteria. CLINICAL HISTORY: CVA/TIA,HTN,HLD,EX-SMOKER,50-69% STENOSIS BILATERAL ON CTA NECK FINDINGS: The peak systolic velocity of the right common carotid artery is 107 cm/s. The peak systolic velocity of the right internal carotid artery is 104 cm/s and end diastolic velocity 17 cm/s. The ICA/CCA ratio is 1.5. A moderate amount of plaque is present. The right external carotid artery is patent. The right vertebral artery is patent with antegrade flow. The peak systolic velocity of the left common carotid artery is 107 cm/s. The peak systolic velocity of the left internal carotid artery is 97 cm/s and end diastolic velocity 12 cm/s. The ICA/CCA ratio is 1.4. A moderate amount of plaque is present. The left external carotid artery is patent.The left vertebral artery is patent with antegrade flow. IMPRESSION: Less than 50% bilateral carotid stenosis. Bilateral patent vertebral arteries with antegrade flow. If indicated, CTA or MRA could further evaluate. Reviewed, Interpreted and Dictated by Pepe Vanegas III, MD Transcribed by Fifi York Authenticated by Pepe Vanegas III, MD on 12/16/2021 08:13:41 AM [facility]
--- NOTE | 2021-12-16 20:23 | CA_ITS ---
APPROVED REPORT EXAM: Comprehensive 2D, Doppler, and color-flow Echocardiogram Clinical Editor: Flavia Rasheed RVT Ht: 5 ft 10 in Wt: 244lbs BSA: 2.27 BP: 176/82 mmHg Indications: CVA/TIA,HTN,EX SMOKER,HLD 2D Dimensions IVSd 1.88 cm M: 0.6-1.2 LVEF (Visual) 87.40 % PWd 1.20 cm M: 0.6 - 1.2 LA Volume 38.00 mL LVDd 3.34 cm M: 4.2 - 5.9 LA Volume Index 16.74 mL/m2 (M/F) 16-34 LVDs 1.47 cm M: 2.5 - 4.0 LVOT 2.32 cm (M/F) 1.5-2.5 M-Mode Dimensions LA Diam 4.26 cm (1.9-4.0) Ao Diam 2.36 cm (2.0-3.7) LV Diastology E Decel Time 297.00 (160-240 msec) E/A Ratio 0.8 MED E' 6.80 (< 7 cm/sec) E'/MED E' Ratio 13.46 (>14) LAT E' 4.90 (<10 cm/sec) E/LAT E' Ratio 18.67 (>14) Aortic Valve LVOT Max 85.00 (70-110 cm/s) LVOT VTI 21.61 cm AoV Peak Allen. 251.00 (50-130 cm/s) AO Peak GR. 25.20 mmHg AO Mean GR. 14.10 (<5 mmHg) AO VTI 63.66 (18-25 cm) TORRES (VTI) 1.44 (2.5-4.5 cm2) Mitral Valve MV E Max Allen. 91.00 (40-130 cm/s) MV A Velocity 119.00 (40-130 cm/s) E/A Ratio 0.77 MV Decel. Time 297.00 (160-240 ms) MV PHT 87.00 ms Pulmonary Valve PV Peak Velocity 69.00 (50-150 cm/s) Tricuspid Valve TR P. Velocity 243.00 cm/s RAP Estimate 10.00 mmHg RVSP 33.60 mmHg Left Ventricle Left atrium is mildly enlarged, left ventricle is normal size, mild concentric left ventricular hypertrophy, visually estimated ejection fraction 55% with no regional wall motion abnormality, grade 1 diastolic dysfunction seen without tissue Doppler evidence of raise left atrial pressure. Right Ventricle Right atrium and right ventricle are normal size and contractility. Aortic Valve Aortic valve is thickened and calcified with restriction to leaflet mobility, mean gradient across valve is 15 mmHg, valve area is 1.4 cm represents moderate aortic stenosis, there is no significant aortic insufficiency. Mitral Valve Mitral valve leaflets are minimally thickened, there is mild mitral regurgitation. Tricuspid Valve Tricuspid valve grossly normal, there is mild tricuspid regurgitation, tricuspid regurgitation jet velocity is inadequate for calculation of the right ventricular systolic pressure. Pulmonic Valve Pulmonic valve is poorly visualized. Great Vessels Aortic root is normal size. Inferior vena cava is poorly visualized. Pericardium No significant pericardial effusion noted. Conclusion 1. Mildly enlarged left atrium, normal left ventricular size, mild concentric left ventricular hypertrophy, visually estimated ejection fraction 55% with no regional wall motion abnormality, grade 1 diastolic dysfunction seen without tissue Doppler evidence of raise left atrial pressure. 2. Thickened and calcified aortic valve valve area is 1.4 cm??? represents moderate aortic stenosis, there is no significant aortic insufficiency. 3. Mild mitral and tricuspid regurgitation. 4. No significant pericardial effusion noted. 5. Inferior vena cava is poorly visualized. Electronically signed by : Jf Galvan MD 12/16/2021 09:40:41
--- NOTE | 2021-12-22 22:42 | HMH.DCSUM ---
General - General Admission date:: 12/14/21 Discharge date: 12/16/21 HPI HPI: Patient is an 86 year old male that identifies nurse practitioner Maxine Garcia as his primary care provider. he presented to [facility] ER last night with a 24 hour history of slurring speech. Patient states he had a similar episode a few months ago and was treated her at [facility] and was diagnosed with a TIA. He has seen Dr. Del Real, in neurology, several times in follow up since that admission. She has also diagnosed patient with myoclonus and mild cognitive impairment. On the day prior to admission patient states he was feeling well and then all of a sudden was slurring his words. He no other neurological symptoms at that time. His son brought him to the ER and confirmed his report of no other symptoms. Patient states he had been taking all of his medication as prescribed. Hospital Course Hospital Course: The patient was admitted for further evaluation and monitoring. His speech did improve and he was able to eat. An echo and carotid ultrasound were ordered. He had a head CT showing nothing acute. He had a chest x-ray showing hypoventilatory changes at the lung bases. He had a head CTA showing no intracranial stenosis or occlusion. He had a neck CTA showing 50 to 60% stenosis in the carotid arteries. The patient's carotid duplex showed 50% stenosis of the bilateral carotid arteries. Patient's echo showed an EF of 55% with grade 1 diastolic dysfunction. He also had moderate aortic stenosis. By 12/16/2021, he was feeling well and his speech was better. He was moving all extremities without difficulty. His blood pressure medicine was increased and he was stable to be discharged home and will follow up with his PCP. Objective Vital signs: Temp Pulse Resp BP Pulse Ox 97.9 F 69 18 192/84 H 98 12/16/21 07:44 12/16/21 07:44 12/16/21 07:44 12/16/21 07:44 12/16/21 07:44 Narrative: - Constitutional no acute distress - *Routine Respiratory Exam Present: crackles (Few left basilar) - *Routine Cardiovascular Exam Present: RRR - *Routine Abdominal Exam Present: soft, normoactive bowel sounds, obese. Absent: tenderness - *Routine Extremities Exam Absent: edema, calf tenderness - *Routine Neurological Exam Present: alert, oriented X3, moving all extremities. Absent: normal speech (Slow and slightly slurred: Very understandable) DS: Diagnosis - Discharge Diagnosis (1) Aphasia Status: Acute (2) Hypertension Status: Acute (3) Multifocal myoclonus Status: Acute Problem details: In the setting of worsening of CRI, UTI, dehydration. Most likely metabolic etiology. (4) TIA (transient ischemic attack) Status: Acute (5) Hyperlipidemia Status: Chronic (6) Osteoarthritis Status: Chronic Discharge Plan - Patient Discharge Instructions ACTIVITY: Continue current activity DIET: continue same diet Patient Instructions: DI for Transient Ischemic Attack, DI for High Blood Pressure - Follow up Plan Follow up with: Avani Del Real MD [Staff Physician] - 12/31/21 1:30 pm Rody Garcia APRN [Primary Care Provider] - 12/23/21 11:30 am Disposition: Home, Self-Care Condition at discharge:: Improved Home Medications: Home Medications Medication Instructions Recorded Confirmed Type Aspirin [Aspirin EC 325mg Tab] 325 mg PO DAILY 09/21/21 12/14/21 History Atorvastatin Calcium [Lipitor 40mg 40 mg PO DAILY 09/21/21 12/14/21 History Tab] Finasteride [Proscar 5mg Tablet] 5 mg PO DAILY 09/21/21 12/14/21 History Triamterene/Hydrochlorothiazid 1 each PO DAILY 12/14/21 12/14/21 History [Triamterene-Hctz 75-50 mg Tab] Irbesartan [Avapro 300mg 300 mg PO DAILY #30 tab 12/16/21 Rx tablet] carvediloL [Carvedilol 12.5mg Tab] 12.5 mg PO BID #60 tab 12/16/21 Rx Prescriptions/Medication Reconciliation: New Irbesartan [Avapro 300mg tablet] 300 mg PO DAILY #30 tab carv
== END 2021-12-16 13:27 | disposition home or self-care (01) ==
LOC: ER 20:26 → 2ND 20:43
PROVIDERS: Admitting Provider Family Medicine; Emergency Provider Student in an Organized Health Care Education/Training Program; PCP Nurse Practitioner Family; Visit Provider Family Medicine
DX: G45.8 Other transient cerebral ischemic attacks and related syndromes (principal); R47.01 Aphasia; G25.3 Myoclonus; E78.5 Hyperlipidemia, unspecified; I10 Essential (primary) hypertension; M19.90 Unspecified osteoarthritis, unspecified site; Z79.899 Other long term (current) drug therapy; Z20.822 Contact with and (suspected) exposure to COVID-19
CPT/HCPCS: G0378; 70450; 70496; 70498; 71045; 80048; 80053; 80061; 81001; 82962; 83735; 85025; 85610; 93306; 93880; 99284; C9803; Q9967; U0003; U0005

== ENCOUNTER 2022-12-09 13:32 | Emergency (ER) | payer MEDICARE, MEDICAID, SELFPAY ==
[2022-12-09 13:34] VITALS: BP 104/44; PULSE 60; RESP 18; TEMP 36.9; O2SAT 94; BMI 31.8
[2022-12-09 14:01] VITALS: BP 106/41; PULSE 57; O2SAT 98
--- NOTE | 2022-12-09 14:05 | CT_ITS ---
PROCEDURE INFORMATION: Exam: CT Head Without Contrast Exam date and time: 12/09/2022 4:16 PM Age: 87 years old Clinical indication: Injury or trauma; Fall; Additional info: Headache, fall TECHNIQUE: Imaging protocol: Computed tomography of the head without contrast. Total images: 289 Radiation optimization: All CT scans at this facility use at least one of these dose optimization techniques: automated exposure control; mA and/or kV adjustment per patient size (includes targeted exams where dose is matched to clinical indication); or iterative reconstruction. Other protocol: This patient has received 4 known CTs and 0 known cardiac nuclear medicine studies in the 12 months prior to the current study. COMPARISON: CT HEAD/BRAIN WO CON 12/14/2021 7:12 PM FINDINGS: Brain: Age-related atrophy and chronic white matter ischemic changes, with no evidence of an acute intracranial abnormality. No hemorrhage, mass effect or midline shift. Cerebral ventricles: No ventriculomegaly. Paranasal sinuses: Mucosal thickening noted within both maxillary sinuses. Mastoid air cells: Visualized mastoid air cells are well aerated. Nasal cavity: Slight [id number] nasal septal deviation. Bones/joints: No acute fracture. Soft tissues: No acute changes Vasculature: Mild atherosclerotic disease is evident. IMPRESSION: 1. Age-related atrophy and chronic white matter ischemic changes, with no evidence of an acute intracranial abnormality. 2. No hemorrhage, mass effect or midline shift. 3. Mucosal thickening noted within both maxillary sinuses.
--- NOTE | 2022-12-09 14:05 | CT_ITS ---
PROCEDURE INFORMATION: Exam: CT Abdomen And Pelvis With Contrast Exam date and time: 12/09/2022 4:20 PM Age: 87 years old Clinical indication: Injury or trauma; Fall; Additional info: Abdo pain TECHNIQUE: Imaging protocol: Computed tomography of the abdomen and pelvis with contrast. Total images: 362 Radiation optimization: All CT scans at this facility use at least one of these dose optimization techniques: automated exposure control; mA and/or kV adjustment per patient size (includes targeted exams where dose is matched to clinical indication); or iterative reconstruction. Contrast material: ISOVUE; Contrast volume: 75 ml; Contrast route: IV; Other protocol: This patient has received 4 known CTs and 0 known cardiac nuclear medicine studies in the 12 months prior to the current study. COMPARISON: CR XR PELVIS 1-2V 12/09/2022 4:11 PM FINDINGS: Liver: There is a diffuse decrease in hepatic parenchymal density, consistent with mild fatty infiltration. Gallbladder and bile ducts: Normal. No calcified stones. No ductal dilation. Pancreas: Normal. No ductal dilation. Spleen: Normal. No splenomegaly. Adrenal glands: Normal. No mass. Kidneys and ureters: Normal. No hydronephrosis. Stomach and bowel: Large amount of stool is present throughout the colon. Mild diverticulosis is present in the distal colon. Appendix: No evidence of appendicitis. Intraperitoneal space: Normal. No significant fluid collection. Vasculature: Collateral blood vessels noted within the anterior aspect of the right lower quadrant. Lymph nodes: Unremarkable. No enlarged lymph nodes. Urinary bladder: Unremarkable as visualized. Reproductive: Mild enlargement of the prostate. The prostate gland contains benign-appearing calcifications that are likely parenchymal. Bones/joints: The lumbar spine demonstrates mild degenerative changes at multiple levels. Soft tissues: Soft tissues are normal. IMPRESSION: 1. There is a diffuse decrease in hepatic parenchymal density, consistent with mild fatty infiltration. 2. Mild enlargement of the prostate. 3. Large amount of stool is present throughout the colon. 4. Mild diverticulosis is present in the distal colon. 5. The lumbar spine demonstrates mild degenerative changes at multiple levels. 6. Collateral blood vessels noted within the anterior aspect of the right lower quadrant.
--- NOTE | 2022-12-09 14:05 | XR_ITS ---
PROCEDURE INFORMATION: Exam: XR Pelvis Exam date and time: 12/09/2022 4:11 PM Age: 87 years old Clinical indication: Injury or trauma; Fall; Blunt trauma (contusions or hematomas); Bilateral; Pelvic region TECHNIQUE: Imaging protocol: Radiologic exam of the pelvis. Views: 1 or 2 view. Total images: 1 COMPARISON: No relevant prior studies available. FINDINGS: Bones/joints: Degenerative changes of both hips. No evidence of acute fracture or dislocation. Soft tissues: Soft tissues are within normal limits. IMPRESSION: 1. Degenerative changes of both hips. 2. No evidence of acute fracture or dislocation.
--- NOTE | 2022-12-09 14:05 | XR_ITS ---
PROCEDURE INFORMATION: Exam: XR Chest Exam date and time: 12/09/2022 4:11 PM Age: 87 years old Clinical indication: Other: Weakness; Additional info: Weak, shakey TECHNIQUE: Imaging protocol: Radiologic exam of the chest. Views: 1 view. Total images: 2 COMPARISON: CR XR CHEST PORTABLE 12/14/2021 7:18 PM FINDINGS: Lungs: Bilateral hyperinflation is present. Atelectatic changes noted within the right upper lobe. Pleural spaces: Small left pleural effusion. No evidence of pneumothorax. Heart/Mediastinum: Heart demonstrates mild diffuse enlargement. Vasculature: Mild atherosclerotic disease is evident. Bones/joints: Unremarkable. IMPRESSION: 1. Bilateral hyperinflation is present. 2. Mild cardiomegaly. 3. Atelectatic changes noted within the right upper lobe. 4. Small left pleural effusion. 5. No evidence of pneumothorax.
--- NOTE | 2022-12-09 14:08 | HMH.EDGENADL ---
Discharge Plan Disposition Patient Disposition: Home, Self-Care Condition: Good Prescriptions Prescriptions: New Paxlovid (EUA) 150-100 mg tablets,dose pack See Rx Instructions .ROUTE .COMPLEX Qty: 20 0RF Rx Instructions: take ONE 150 mg tablet of nirmatrelvir with ONE 100 mg tablet of ritonavir twice daily for 5 days No Action atorvastatin 40 MG tablet 40 mg PO DAILY aspirin 325 MG tablet 325 mg PO DAILY finasteride 5 MG tablet 5 mg PO DAILY triamterene-hydrochlorothiazid 1 EACH tablet 1 each PO DAILY carvedilol 12.5 MG tablet 12.5 mg PO BID Qty: 60 0RF irbesartan 300 MG tablet 300 mg PO DAILY Qty: 30 0RF Referrals Follow up/Referrals: Rody Garcia APRN [Primary Care Provider] - See instructions Activity Restrictions/Add. Instructions Additional Instructions/Restrictions: Rest and drink plenty of fluids. Paxlovid as prescribed. Consult with pharmacist when prescription is filled. You may need to hold atorvastatin while taking Paxlovid. ADDITIONAL INSTRUCTIONS FOR COVID-19: Rest, drink plenty of fluids. Tylenol or Ibuprofen for fever and/or aches and pains. Monitor your symptoms. IF YOU HAVE AN EMERGENCY WARNING SIGN (INCLUDING TROUBLE BREATHING), SEEK EMERGENCY MEDICAL CARE IMMEDIATELY. COVID-19 Isolation: People with COVID-19 should isolate for 5 days. Then if they are asymptomatic (no symptoms) or their symptoms are resolving (without fever for 24 hours), follow that by 5 days of wearing a mask when around others to minimize the risk of infecting people you encounter. If you test positive for COVID-19 and never develop symptoms, day 0 is the day of your positive viral test (based on the date you were tested) and day 1 is the first full day after your positive test. If you develop symptoms after testing positive, your 5-day isolation period must start over. Day 0 is your first day of symptoms. Day 1 is the first full day after your symptoms developed. What to do: Stay in a separate room from other household members, if possible. Use a separate bathroom, if possible. Avoid contact with other members of the household and pets. Don?t share personal household items, like cups, towels, and utensils. Wear a mask when around other people if able. Clinical Impressions Clinical Impression: COVID-19 virus infection Instructions Patient Instructions: DI for COVID-19 (Suspected or Confirmed ) Discharge ED Provider: Sumit Viera General Adult HPI General Chief complaint: Weakness Stated complaint: Weakness abd pain fall@home 12/09 Time Seen by Provider: 12/09/22 14:00 Mode of Arrival: Wheelchair Source of Information: Patient Limitations: No Limitations Description of Symptoms (Recalled from ER Triage Doc. by RN): Pt reports for 2-3 days has not been feeling well. Reports unable to maintain standing position, reports his legs get weak, becomes lightheaded and his hands are shaky. Pt granddaughter states pt was reporting to her earlier today that he has a headache and feels car sick like, did not sleep well r/t his legs bothering him lastnight. Also states pt was being treated for a URI but did not complete antibiotic course. Granddaughter states in the past when pt has had similar symptoms his ammonia level has been up, also reports pt was not taking lactulose as prescribed r/t son in hospital last week and medication keeping him in the bathroom when he needed to be out places. History of Present Illness HPI narrative: History obtained from patient and granddaughter. He has a history of cirrhosis. For 2 to 3 days not feeling well complaining of headache and abdominal pain. He feels shaky, says that his legs go out from under him. Granddaughter says coming back from the bathroom today he fell to the ground. No loss of consciousness. She says that this is happened in the past and it has been due to high ammonia level. He has also had diverticul
--- NOTE | 2022-12-09 14:24 | ECG_ITS ---
APPROVED REPORT Exam: Resting ECG HR:53 bpm ECG Measurements Heart Rate 53 AXES NJ 175 P 31 QRSd 93 QRS 28 QT 451 T 15 QTc 434 Conclusion SINUS BRADYCARDIA WITH SINUS ARRHYTHMIA NONSPECIFIC T-WAVE ABNORMALITY BORDERLINE ECG UNCONFIRMED REPORT Electronically signed by : Chris Gonzalez MD 12/10/2022 21:35:17
[2022-12-09 14:32] VITALS: BP 103/48; PULSE 57; RESP 18; O2SAT 95
[2022-12-09 14:48] LABS: Basophils % 0.9 % (0.1-2.0); Eosinophils # 0.2 K/mm3 (0.0-0.4); Eosinophils % 3.9 % (0.1-12.0); Hematocrit 42.3 % (42.0-52.0); Lymphocytes # 1.1 K/mm3 (0.7-4.5); Lymphocytes % 29.5 % (10-50); Mean Corpuscular Hemoglobin 33.1 pg (27.0-31.2); Mean Corpuscular Volume 100.2 fl (80-94); Mean Platelet Volume 8.7 fl (7.4-10.4); Monocytes # 0.5 K/mm3 (0.1-1.0); Monocytes % 11.6 % (1.7-9.3); Neutrophils # 2.1 K/mm3 (1.8-7.8); Neutrophils % 54.2 % (37.0-80.0); Platelet Count 116 K/mm3 (142-424); Red Blood Count 4.22 M/mm3 (4.60-6.20); Red Cell Distribution Width 14.8 % (11.5-17.5); White Blood Count 3.8 K/mm3 (4.8-10.8)
[2022-12-09 14:56] LABS: Chloride 105 mmol/L (98-107); Potassium 3.3 mmoL/L (3.5-5.1); Sodium 136 mmol/L (136-145)
[2022-12-09 14:58] LABS: Ammonia 14 umol/L (9-30); Blood Urea Nitrogen 23 mg/dl (9-20); Creatinine Clearance Estimated 53 mL/min (50-200); Estimated Glomerular Filt Rate 41 ml/min (>60); GFR (African American) 50 ML/MIN (>60); Lactic Acid 1.2 mmol/L (0.7-2.1)
[2022-12-09 14:59] LABS: Alanine Aminotransferase 34 U/L (12-78); Albumin Level 3.1 g/dl (3.5-5.0); Albumin/Globulin Ratio 1.1 (1.1-1.8); Alkaline Phosphatase 62 U/L (38-126); Anion Gap 8.3 mEq/L (5-15); Aspartate Amino Transferase 48 U/L (17-59); Bilirubin,Total 1.6 mg/dl (0.2-1.3); Carbon Dioxide 26 mmol/L (22.0-30.0); Globulin 2.8 g/dL (1.3-3.2); Glucose 79 mg/dl (74-100); Lipase 190 U/L (23-300); Total Protein,Serum 5.9 g/dl (6.3-8.2)
[2022-12-09 15:00] LABS: INR 1.09 (0.9-1.1); Prothrombin Time 11.7 seconds (10.1-12.5)
[2022-12-09 15:06] VITALS: BP 93/48; PULSE 55; O2SAT 97
--- NOTE | 2022-12-09 15:08 | PC.NURSE ---
Izabel RN aware of patients BP reading 93/48
[2022-12-09 15:10] LABS: Troponin I 0.02 ng/ml (0.00-0.034)
[2022-12-09 15:31] VITALS: BP 123/50; PULSE 62; O2SAT 96
[2022-12-09 15:40] LABS: Influenza A, PCR Not Detected (NotDetected); Influenza B, PCR Not Detected (NotDetected)
[2022-12-09 15:41] LABS: Coronavirus 19, PCR Detected (NotDetected)
--- NOTE | 2022-12-09 15:59 | PC.NURSE ---
pt gone to rad
--- NOTE | 2022-12-09 16:29 | PC.NURSE ---
pt returned from radiology
--- NOTE | 2022-12-09 16:32 | PC.NURSE ---
pt return from CT
--- NOTE | 2022-12-09 16:48 | PC.NURSE ---
pt given a urinal
[2022-12-09 17:13] LABS: Microscopic, Urine URINE MICROSCOPIC (MICROSCOPIC)
[2022-12-09 17:17] LABS: Appearance,Urine CLEAR (Clear); Bilirubin,Urine Negative (Negative); Blood, Urine TRACE-I (Negative); Color,Urine YELLOW (Yellow); Glucose,Urine (UA) Negative (Negative); Ketones,Urine Negative (Negative); Leukocyte Esterase,Urine Negative (Negative); Nitrate,Urine Negative (Negative); PH,Urine 7.5 (5.0-8.5); Protein,Urine Negative (Negative); Urobilinogen,Urine 0.2 EU/dl (0.2)
--- NOTE | 2022-12-09 17:27 | PC.NURSE ---
called radiology to check on status of ct readings, waiting regional vice president [employer] back
[2022-12-09 17:39] LABS: Squamous Epithelial Cell,Urine Occasional #/hpf (0-5)
--- NOTE | 2022-12-09 17:53 | PC.NURSE ---
pt ambulatory down [place] with assistance from cane. No complications. ER aware.
--- NOTE | 2022-12-09 18:01 | PC.NURSE ---
spoke with pts daughter, notified her pt is ready for d/c, states she will be here in 20-30 minutes to get pt.
[2022-12-09 19:06] VITALS: BP 124/79; PULSE 62; RESP 16; TEMP 36.9; O2SAT 96
== END 2022-12-09 19:08 | disposition home or self-care (01) ==
PROVIDERS: Emergency Provider Emergency Medicine; PCP Nurse Practitioner Family
DX: U07.1 COVID-19 (principal); R53.1 Weakness; K74.60 Unspecified cirrhosis of liver
CPT/HCPCS: 70450; 71045; 72170; 74177; 80053; 81001; 82140; 83605; 83690; 84484; 85025; 85610; 87040; 93005; 96360; 99285; C9803; Q9967; U0003; U0005

== ENCOUNTER 2022-12-11 09:27 | Observation (INO) | payer MEDICARE, MEDICAID, SELFPAY ==
[2022-12-11] VITALS (17 sets, daily range): BP systolic 106–191; BP diastolic 44–95; PULSE 50–69; RESP 16–18; TEMP 36.6–37.7; O2SAT 95–99; BMI 31.8; BMI 31.2
--- NOTE | 2022-12-11 09:42 | ECG_ITS ---
APPROVED REPORT Exam: Resting ECG HR:64 bpm ECG Measurements Heart Rate 64 AXES WA 195 P 42 QRSd 95 QRS 1 QT 406 T 72 QTc 415 Conclusion SINUS RHYTHM WITH OCCASIONAL SUPRAVENTRICULAR PREMATURE COMPLEXES NONSPECIFIC T-WAVE ABNORMALITY BORDERLINE ECG UNCONFIRMED REPORT Electronically signed by : Chris Gonzalez MD 12/11/2022 21:50:01
--- NOTE | 2022-12-11 09:46 | HMH.EDGENADL ---
Discharge Plan Disposition Patient Disposition: Admitted as Observation Condition: Fair Chief Complaint: Chest Pain Prescriptions Prescriptions: No Action atorvastatin 40 MG tablet 40 mg PO DAILY aspirin 325 MG tablet 325 mg PO DAILY finasteride 5 MG tablet 5 mg PO DAILY triamterene-hydrochlorothiazid 1 EACH tablet 1 each PO DAILY carvedilol 12.5 MG tablet 12.5 mg PO BID Qty: 60 0RF irbesartan 300 MG tablet 300 mg PO DAILY Qty: 30 0RF Paxlovid (EUA) 150-100 mg tablets,dose pack See Rx Instructions .ROUTE .COMPLEX Qty: 20 0RF Rx Instructions: take ONE 150 mg tablet of nirmatrelvir with ONE 100 mg tablet of ritonavir twice daily for 5 days Referrals Follow up/Referrals: Rody Garcia APRN [Primary Care Provider] - See instructions Clinical Impressions Clinical Impression: Bilateral pneumonia, COVID-19 virus infection Discharge ED Provider: Sumit Viera General Adult HPI General Chief complaint: Chest Pain Stated complaint: WEAKNESS Time Seen by Provider: 12/11/22 09:46 History of Present Illness HPI narrative: Had to beThe patient is COVID-positive. He is seen by me in this emergency department 2 days ago for weakness and shakiness and a fall, family was concerned that his ammonia level might be elevated, discovered to be COVID-positive at that time, ammonia level and the remainder of his work-up was unremarkable. He felt better after IV fluids in the emergency department was ambulatory around the emergency department, wanted to go home, and was discharged on Paxlovid. Daughter states that his pharmacy did not have the Paxlovid and yesterday he was feeling better so he did not feel he was going to needed. However, today he feels worse. Daughter states he has dyspnea on exertion. Weakness. Coughing more. Complains of sternal pain and burning in his head when he coughs. Did not eat much this morning. No vomiting. Has some chronic diarrhea from lactulose that he takes daily. The patient arrived by private vehicle helped from the vehicle, family stated he was too weak to get up by himself He has had COVID previously. He was vaccinated for COVID with the Lui & Lui vaccine in February 2021. He has not had any boosters. He has cirrhosis. Related Data Home Medications Medication Instructions Recorded Confirmed aspirin 325 mg tablet,delayed 325 mg PO DAILY [facility] 09/21/21 12/14/21 release atorvastatin 40 mg tablet 40 mg PO DAILY Cholesterol 09/21/21 12/14/21 finasteride 5 mg tablet 5 mg PO DAILY prostate 09/21/21 12/14/21 triamterene 75 1 each PO DAILY Hypertension 12/14/21 12/14/21 mg-hydrochlorothiazide 50 mg tablet Previous Rx's Medication Instructions Recorded carvedilol 12.5 mg tablet 12.5 mg PO BID #60 tabs 12/16/21 irbesartan 300 mg tablet 300 mg PO DAILY #30 tabs 12/16/21 nirmatrelvir 150 mg-ritonavir 100 See Rx Instructions PO .COMPLEX 12/09/22 mg tablets in a dose pack (EUA) #20 tabs (Paxlovid) Allergies Allergy/AdvReac Type Severity Reaction Status Date / Time No Known Allergies Allergy Verified 09/30/21 08:25 [facility] Disclaimer: The information contained in this section may have been updated after the patient was seen, as this information can be updated by other users. Social History Smoking Status: Never smoker alcohol intake: former substance use type: denies use current occupational status: unemployed Travel in the last 8 weeks: None household members: children housing: house ROS Obtained: Yes Systems reviewed as appropriate & no additional complaints except as documented Constitutional Constitutional: Reports fever(s), Reports headache(s), Reports poor appetite and Reports weakness ENT Ears, Nose, Mouth, and Throat: Reports headache(s), Denies nasal discharge and Denies sore throat Cardiovascular Cardiovascular: Reports chest pain and Reports dyspnea on exertion Respirat
--- NOTE | 2022-12-11 09:52 | XR_ITS ---
FINAL REPORT CLINICAL HISTORY: covid, jaquez, cp, cough COMPARISON: 11/21/2022 FINDINGS: SINGLE-VIEW CHEST The heart size is normal. The mediastinum is normal. There are mild pulmonary opacities bilaterally, may represent pneumonia. Findings are visually slightly worse. There is no pneumothorax. IMPRESSION: Pulmonary opacities, may represent pneumonia, slightly worse. Reviewed, Interpreted and Dictated by Pepe Vanegas III, MD Transcribed by Sharon Webster Authenticated and [facility]
[2022-12-11 10:02] LABS: Basophils % 0.8 % (0.1-2.0); Eosinophils # 0.1 K/mm3 (0.0-0.4); Eosinophils % 4.2 % (0.1-12.0); Hematocrit 39.5 % (42.0-52.0); Hemoglobin 13.2 g/dL (14.1-18.0); Lymphocytes # 0.8 K/mm3 (0.7-4.5); Lymphocytes % 23.1 % (10-50); Mean Corpuscular HGB Conc 33.4 g/dL (31.8-35.4); Mean Corpuscular Hemoglobin 32.5 pg (27.0-31.2); Mean Corpuscular Volume 97.3 fl (80-94); Mean Platelet Volume 9.2 fl (7.4-10.4); Monocytes # 0.2 K/mm3 (0.1-1.0); Monocytes % 7.1 % (1.7-9.3); Neutrophils # 2.2 K/mm3 (1.8-7.8); Neutrophils % 64.8 % (37.0-80.0); Platelet Count 90 K/mm3 (142-424); Red Blood Count 4.05 M/mm3 (4.60-6.20); Red Cell Distribution Width 14.7 % (11.5-17.5); White Blood Count 3.4 K/mm3 (4.8-10.8)
[2022-12-11 10:06] LABS: Alanine Aminotransferase 31 U/L (12-78); Albumin Level 2.9 g/dl (3.5-5.0); Albumin/Globulin Ratio 1.1 (1.1-1.8); Alkaline Phosphatase 50 U/L (38-126); Anion Gap 5.3 mEq/L (5-15); Aspartate Amino Transferase 42 U/L (17-59); Bilirubin,Total 2.1 mg/dl (0.2-1.3); Blood Urea Nitrogen 18 mg/dl (9-20); Calcium 7.6 mg/dl (8.4-10.2); Carbon Dioxide 24 mmol/L (22.0-30.0); Chloride 108 mmol/L (98-107); Creatinine Clearance Estimated 77 mL/min (50-200); Estimated Glomerular Filt Rate 63 ml/min (>60); GFR (African American) 77 ML/MIN (>60); Globulin 2.7 g/dL (1.3-3.2); Glucose 133 mg/dl (74-100); Potassium 3.3 mmoL/L (3.5-5.1); Sodium 134 mmol/L (136-145); Total Protein,Serum 5.6 g/dl (6.3-8.2)
[2022-12-11 10:17] LABS: Troponin I 0.03 ng/ml (0.00-0.034)
--- NOTE | 2022-12-11 10:26 | CT_ITS ---
FINAL REPORT CLINICAL HISTORY: covid, cp, soa FINDINGS: Thin section axial CT images of the chest were obtained with contrast. 3D reformatted images were also obtained. This study was performed with techniques to keep radiation doses as low as reasonably achievable (ALARA). Individualized dose reduction techniques using automated exposure control or adjustment of mA and/or kV according to the patient's size were employed. There is no evidence of pulmonary embolism. There is no evidence of thoracic aortic aneurysm or dissection. There is no evidence of mediastinal mass or adenopathy. There is bilateral hilar adenopathy, right greater than left. The largest node on the right measures 22 mm. There are bilateral pulmonary opacities right greater than left consistent with bilateral pneumonia. 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 Limited images of the upper abdomen demonstrate irregular contour of the liver which likely represent cirrhosis. There is a small amount of ascites. IMPRESSION: No evidence of pulmonary embolism. Bilateral hilar adenopathy, right greater than left. Reviewed, Interpreted and Dictated by Pepe Vanegas III, MD Transcribed by Fifi York Authenticated and [facility]
[2022-12-11 10:39] LABS: Lactic Acid 1.1 mmol/L (0.7-2.1)
[2022-12-11 13:44] LABS: Troponin I 0.03 ng/ml (0.00-0.034)
--- NOTE | 2022-12-11 14:25 | EXP.HP ---
History of Present Illness *Admission Date: 12/11/22 *Reason for visit:: Cough, fatigue, weakness *History of present illness: Mr. Faith is an 87-year-old male who presented to the ER today for the second day in a row for weakness and fatigue. Family states he had a fall at home. No significant trauma. Presented yesterday with similar symptoms, ammonia at that time was normal at less than 20. Family concerned that his weakness is secondary to his liver (cirrhosis) or being COVID-positive (diagnosed yesterday). Work-up was unremarkable yesterday. Baseline labs identified. Patient stable on room air and discharged home. On presentation today, he necessitated assistance getting out of the car and family is having a hard time caring for him at home. Further imaging today with CT of chest showing bilateral patchy airspace disease. Patient had been seen by his PCP a week ago and reportedly treated for infection at that time, not sure the antibiotics. 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 Daughter who is with him today states that he is worse today, has dyspnea on exertion, increased coughing and poor p.o. intake. She feels he is not well enough to go home. ER consulted medicine for possible admission. Patient admitted for further management. On arrival to the floor, he states he feels fatigued but somewhat better since getting to the floor. Tolerating IV fluids. Is afebrile. Cough scantly productive for clear phlegm. No nausea or vomiting. Having 2-3 bowel movements a day due to his rifaximin. Lives with family. He has had COVID previously.? He was vaccinated for COVID with the Lui & Lui vaccine in February 2021.? He has not had any boosters.? He has compensated cirrhosis. [facility] Disclaimer: The information contained in this section may have been updated after the patient was seen, as this information can be updated by other users. Medical History (Updated 12/11/22 @ 17:06 by Marc Travis MD) Cirrhosis CKD (chronic kidney disease) Hyperlipidemia No significant past medical history Osteoarthritis TIA (transient ischemic attack) Surgical History No significant past surgical history Family History No significant family history Family history of cancer Social History Smoking Status: Former smoker pack-years: 10 alcohol intake: former substance use type: denies use current occupational status: unemployed Travel in the last 8 weeks: None household members: children housing: house Review of Systems Review of Systems Review of systems (narrative): 14 point review of systems performed, pertinent positives and negatives as per HPI Constitutional Constitutional: Reports headache(s) and Reports weakness ENT Ears, Nose, Mouth, and Throat: Reports headache(s) *Musculoskeletal Musculoskeletal: Denies numbness *Neurologic Neurologic: Reports headache(s), Denies numbness and Reports weakness Meds Home Medications and Allergies Home Medications Medication Instructions Recorded Confirmed Type aspirin 325 mg tablet,delayed 325 mg PO DAILY [facility] 09/21/21 12/11/22 History release finasteride 5 mg tablet 5 mg PO DAILY prostate 09/21/21 12/11/22 History albuterol sulfate 90 mcg/actuation 2 puff inhalation Q4HP PRN 12/11/22 12/11/22 History aerosol inhaler Shortness Of Breath atorvastatin 20 mg tablet 20 mg PO DAILY Cholesterol 12/11/22 12/11/22 History carvedilol 12.5 mg tablet 12.5 mg PO BID Hypertension 12/11/22 12/11/22 History clonidine HCl 0.1 mg tablet 0.1 mg PO BID Hypertension 12/11/22 12/11/22 History irbesartan 150 mg tablet 150 mg PO DAILY Hypertension 12/11/22 12/11/22 History rifaximin 550 mg tablet (Xifaxan) 550 mg PO BID CIRRHOSIS 12/11/22
--- NOTE | 2022-12-11 14:26 | PC.NURSE ---
CARE MANAGEMENT NOTIFIED OF ADMISSION
[2022-12-11 14:54] LABS: Influenza A, PCR Not Detected (NotDetected); Influenza B, PCR Not Detected (NotDetected)
[2022-12-11 15:09] LABS: INR 1.14 (0.9-1.1); Prothrombin Time 12.2 seconds (10.1-12.5)
--- NOTE | 2022-12-11 15:26 | PC.NURSE ---
Called Dietary for a reduced sodium diet item for patient per admission orders
--- NOTE | 2022-12-11 15:44 | PC.NURSE ---
REPORT GIVEN Brianne SIDDIQUI RN
[2022-12-11 16:18] LABS: Coronavirus 19, PCR Detected (NotDetected)
--- NOTE | 2022-12-11 18:57 | PC.NURSE ---
since pt came to floor he has done very well. alert x4, standby assist to br. lung sounds diminished. tolerating well on ra with sats at 97%. pt has no complaints at this time. currently resting in bed. cb within reach.
[2022-12-12 04:00] VITALS: BP 146/62; PULSE 60; RESP 18; TEMP 37.4; O2SAT 97; BMI 31.1
--- NOTE | 2022-12-12 04:19 | PC.NURSE ---
NO ACUTE CHANGES SINCE PREVIOUS ASSESSMENT. PT HAS RESTED INTERMITTENTLY THIS SHIFT. LUNG SOUNDS ARE DIMINISHED. REMAINS ON ROOM AIR. TURNING IN BED INDEPENDENTLY. HAS C/O FEELING FEVERISH THIS MORNING. REMAINS A FEBRILE. VSS. CALL DELACRUZ WITHIN REACH.
--- NOTE | 2022-12-12 07:23 | EXP.DC.SUM ---
General Admission date:: 12/11/22 Discharge date: 12/12/22 HPI HPI HPI: Mr. Faith is an 87-year-old male who presented to the ER today for the second day in a row for weakness and fatigue. Family states he had a fall at home. No significant trauma. Presented yesterday with similar symptoms, ammonia at that time was normal at less than 20. Family concerned that his weakness is secondary to his liver (cirrhosis) or being COVID-positive (diagnosed yesterday). Work-up was unremarkable yesterday. Baseline labs identified. Patient stable on room air and discharged home. On presentation today, he necessitated assistance getting out of the car and family is having a hard time caring for him at home. Further imaging today with CT of chest showing bilateral patchy airspace disease. Patient had been seen by his PCP a week ago and reportedly treated for infection at that time, not sure the antibiotics. 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 Daughter who is with him today states that he is worse today, has dyspnea on exertion, increased coughing and poor p.o. intake. She feels he is not well enough to go home. ER consulted medicine for possible admission. Patient admitted for further management. On arrival to the floor, he states he feels fatigued but somewhat better since getting to the floor. Tolerating IV fluids. Is afebrile. Cough scantly productive for clear phlegm. No nausea or vomiting. Having 2-3 bowel movements a day due to his rifaximin. Lives with family. He has had COVID previously.? He was vaccinated for COVID with the Lui & Lui vaccine in February 2021.? He has not had any boosters.? He has compensated cirrhosis. Hospital Course Hospital Course Hospital Course: Mr. Faith is a pleasant 87-year-old male whose had weakness and nonproductive cough is progressed over the past 2 to 3 days.? Symptoms first began a week ago and was treated for bronchitis by his PCP.? Presented to the ER today for the second day in a row.? Patient required wheeling into the ER because of weakness.? ER consulted medicine for admission, given weakness, findings on imaging for pneumonia, decision made to admit for IV antibiotics and treatment along with monitoring overnight in observation status.? Problems addressed as follows: Bilateral pneumonia COVID-19 -Patient admitted for weakness and concerning findings of pneumonia on chest CT. Positive for COVID-19. Unclear how long he has been positive but has had symptoms for over a week. Stable on room air so no indication for remdesivir at this time. Initiated on levofloxacin 750 mg daily, initially IV with transition oral at discharge. Will complete 7 days total of antibiotics for pneumonia. Additionally started on COVID vitamin protocol including vitamin C 500 mg 3 times a day at discharge, vitamin D 50,000 units weekly, and zinc 220 mg daily. Remained stable on room air during hospitalization. Improved mobility and stability on day of discharge. Patient at baseline level of function. Stable for discharge home. Encouraged to continue to wear a mask around other people for at least the next week. PT and OT evaluated patient, found to be at baseline level of function. Cirrhosis, compensated Thrombocytopenia -Compensated.? Complicates illness above. Stable during hospitalization. Continued home rifaximin 550 mg twice a day orally. Continue with goal bowel movements 2-3 times a day to help decrease risk for hepatic encephalopathy. No signs of confusion during admission. Hypertension: Continued home medications as follows: Carvedilol 12.5 mg twice daily, clonidine point 1 mg p.o. twice a day, irbesartan 150 mg daily by mouth. BPH: Continued home tamsulosin 0.4 mg nightly and finasteride 5 mg daily by mouth. Hyperlipidemia: Continue home Lipitor 40 mg daily Stable for discharge home. Finish antibiotics as ordere
[2022-12-12 07:53] LABS: Chloride 109 mmol/L (98-107)
[2022-12-12 07:54] LABS: Basophils % 0.5 % (0.1-2.0); Eosinophils # 0.1 K/mm3 (0.0-0.4); Hematocrit 41.8 % (42.0-52.0); Hemoglobin 13.6 g/dL (14.1-18.0); Lymphocytes # 1.5 K/mm3 (0.7-4.5); Lymphocytes % 32.3 % (10-50); Mean Corpuscular HGB Conc 32.6 g/dL (31.8-35.4); Mean Corpuscular Hemoglobin 32.2 pg (27.0-31.2); Mean Platelet Volume 9.1 fl (7.4-10.4); Monocytes # 0.3 K/mm3 (0.1-1.0); Monocytes % 7.3 % (1.7-9.3); Neutrophils # 2.7 K/mm3 (1.8-7.8); Neutrophils % 57.9 % (37.0-80.0); Platelet Count 98 K/mm3 (142-424); Potassium 3.9 mmoL/L (3.5-5.1); Red Blood Count 4.22 M/mm3 (4.60-6.20); Red Cell Distribution Width 14.7 % (11.5-17.5); Sodium 137 mmol/L (136-145); White Blood Count 4.6 K/mm3 (4.8-10.8)
[2022-12-12 07:56] LABS: Alanine Aminotransferase 29 U/L (12-78); Aspartate Amino Transferase 41 U/L (17-59); Blood Urea Nitrogen 14 mg/dl (9-20); Creatinine Clearance Estimated 83 mL/min (50-200); Estimated Glomerular Filt Rate 71 ml/min (>60); GFR (African American) 86 ML/MIN (>60)
[2022-12-12 07:57] LABS: Albumin/Globulin Ratio 1.1 (1.1-1.8); Alkaline Phosphatase 58 U/L (38-126); Anion Gap 6.9 mEq/L (5-15); Bilirubin,Total 2.4 mg/dl (0.2-1.3); Calcium 7.9 mg/dl (8.4-10.2); Carbon Dioxide 25 mmol/L (22.0-30.0); Globulin 2.8 g/dL (1.3-3.2); Glucose 90 mg/dl (74-100); Magnesium 1.7 mg/dl (1.6-2.3); Total Protein,Serum 5.8 g/dl (6.3-8.2)
[2022-12-12 08:00] VITALS: BP 135/54; PULSE 60; RESP 18; TEMP 36.6; O2SAT 97
--- NOTE | 2022-12-12 09:39 | HMH.PTEV ---
Physical Therapy Evaluation Rehab PT IP Evaluation Start: 12/11/22 14:21 Freq: ONCE Status: Active Protocol: Document 12/12/22 09:36 REYNALDO (Rec: 12/12/22 09:39 REYNALDO [id number]) Subjective/History History History 87 yowm adm to [facility] with generalized weakness due to COVID-19. He reports he lives alone, but his daughter is staying with him currently, he has 3 steps to enter the home and he uses a cane for ambulation at baseline. Subjective Subjective Pt reports no c/o this am. Rehab PT IP Eval Objective Appearance Patient Behavior Appropriate Patient Orientation Person,Place,Time Difficulty following instructions none Speech Pattern Clear Ambulation Patient Able to Ambulate Yes Ambulation Observation IP General Gait Pattern Observation No Deviations/Normal Ambulation Distance (feet) 40 Ambulation Assistive Device None Ambulation Ability Supervision/Stand by Balance Ability to Arise Able, uses arms to help Sitting Balance Steady, safe Standing Balance Steady, wide stance Dynamic Sitting Balance Ability Good Dynamic Standing Balance Ability Good Transfers Bed Transfer Ability Supervision/Stand by Chair Transfer Ability Supervision/Stand by Sit to Stand Bed Transfer Ability Supervision/Stand by Sit to Stand Chair Transfer Ability Supervision/Stand by ROM All Extremities PT ROM Status WFL MMT All Extremities PT MMT WFL Rehab PT IP prob,goals,plan Problems Date of Evaluation: 12/12/22 Discharge Plan PT Discharge Plan Pt is currently at baseline for all mobility and is appropriate to return home once medically stable. G -code Required No Eval Complexity Eval Charge Codes 39358 - Moderate Complexity PHYSICIAN CERTIFICATION: I certify the specified therapy services for [facility] are required, authorized, and reviewed every 30 days.
--- NOTE | 2022-12-12 10:07 | HMH.OTEV ---
OT Inpatient Evaluation Rehab OT IP Evaluation Start: 12/11/22 14:21 Freq: ONCE Status: Active Protocol: [facility]12[facility]22 09[facility] (Rec: 12/12/22 10:07 [facility] [id number]) Rehab OT IP Assessment Subjective History Pt is oriented x3 person, place, and . Pt was admitted to [facility] on 12/11/22 due to Cough, fatigue, weakness. Pt reports that he was independent in all ADLs and IADLs. He reports that he lives alone with occasional assistance from daughter and son when needed. Pt reports that he is still able to drive . Pt reports that he does use a walker at home, and occasionally uses a cane outside the home. Pt has a past medical history of the following: Cirrhosis CKD (chronic kidney disease) Hyperlipidemia No significant past medical history Osteoarthritis TIA (transient ischemic attack ) Subjective I feel fine. Objective Patient Orientation Person,Place,Birthday Upper Extremity Gross ROM WFL Transfer Training Sit/Stand Transfer Assist Level Supervision/Stand by Chair Transfer Ability Supervision/Stand by Chair Transfer Technique Sit to/from Ambulatory Lower Body Dressing Ability Independent Overall Commode/Toilet Transfer Ability Standby Assistance Commode/Toilet Transfer Technique Sit to/from Ambulatory Commode/Toilet Transfer Assistive Grab Bars Devices decrease in endurance No Rehab OT IP prob,goals,plan Problems Date of Evaluation: 12/12/22 Rehab Potential Rehab Potential Innapropriate for Skilled Therapy Discharge Plan OT Discharge Plan Pt appears to be at his baseline with functional transfers and ADL independence . Pt can return home once medically stable per physician . Eval Complexity Eval Charge Codes 46003 - Low Complexity G Codes G -code Required No
--- NOTE | 2022-12-17 13:48 | CARE MANAGER ---
Attempted post-discharge phone interview, no answer.
== END 2022-12-12 10:20 | disposition home or self-care (01) ==
LOC: ER 14:22 → 2ND 16:06
PROVIDERS: Admitting Provider Internal Medicine Adolescent Medicine; Emergency Provider Emergency Medicine; PCP Nurse Practitioner Family; Visit Provider Internal Medicine Adolescent Medicine
DX: U07.1 COVID-19 (principal); N18.9 Chronic kidney disease, unspecified; E78.5 Hyperlipidemia, unspecified; I12.9 Hypertensive chronic kidney disease with stage 1 through stage 4 chronic kidney disease, or unspecified chronic kidney disease; K74.60 Unspecified cirrhosis of liver; R29.6 Repeated falls; J18.9 Pneumonia, unspecified organism; Z79.899 Other long term (current) drug therapy
CPT/HCPCS: G0378; 36415; 71045; 71275; 80053; 83605; 83735; 84484; 85025; 85610; 87040; 93005; 97162; 97165; 99285; C9803; J1956; Q9967; U0003; U0005